=== PATIENT | male | born 1995 | race Caucasian/White ===

== ENCOUNTER 2024-06-17 11:09 | Inpatient (IN) | payer OTHER ==
--- NOTE | 2024-06-17 11:36 | ED ---
Nausea/Vomiting/Diarrhea HPI - General Chief complaint: Weakness Stated complaint: weakness,vomiting Time Seen by Provider: 06/17/24 11:18 Source: patient, RN notes reviewed Mode of arrival: ambulatory Limitations: no limitations - History of Present Illness Initial comments: This is a 28-year-old male who presents to the emergency department for nausea and vomiting. States that it started 1.5 days ago. He is unable to keep anything down. Reports some diarrhea as well. He has generalized abdominal discomfort only when vomiting. Denies any fevers/chills or sick contacts. He is concerned because he is a type I diabetic and is worried about going into DKA. States that his sugars have been all over the place, but most recently in the high 200s. MD complaint: nausea, vomiting - Related Data Home Medications Medication Instructions Recorded Confirmed Insulin Regular, Human [NovoLIN R] See Protocol SQ AC-TID 06/17/24 06/17/24 Allergies Allergy/AdvReac Type Severity Reaction Status Date / Time No Known Allergies Allergy Verified 06/17/24 11:47 Review of Systems ROS Statement: Those systems with pertinent positive or pertinent negative responses have been documented in the HPI. ROS Other: All systems not noted in ROS Statement are negative. Past Medical History Past Medical History: Diabetes Mellitus, GERD/Reflux Additional Past Medical History / Comment(s): IBS History of Any Multi-Drug Resistant Organisms: None Reported Past Surgical History: No Surgical Hx Reported Additional Past Surgical History / Comment(s): pilonidal cyst Past Psychological History: No Psychological Hx Reported Smoking Status: Current every day smoker Past Alcohol Use History: None Reported Past Drug Use History: Marijuana General Exam Limitations: no limitations General appearance: alert, in no apparent distress Head exam: Present: atraumatic, normocephalic, normal inspection Respiratory exam: Present: normal lung sounds bilaterally. Absent: respiratory distress, wheezes, rales, rhonchi, stridor Cardiovascular Exam: Present: regular rate, normal rhythm, normal heart sounds. Absent: systolic murmur, diastolic murmur, rubs, gallop, clicks Neurological exam: Present: alert, oriented X3, CN II-XII intact Psychiatric exam: Present: normal affect, normal mood Skin exam: Present: warm, dry, intact, normal color. Absent: rash Course Vital Signs 10/23/24 10/23/24 11:12 11:42 Temperature 97.3 F L Pulse Rate 119 H 103 H Respiratory 20 22 Rate Blood Pressure 114/75 123/78 O2 Sat by Pulse 100 99 Oximetry Medical Decision Making - Medical Decision Making This is a 28-year-old male who presents to the emergency department for nausea, vomiting, and weakness. Was pt. sent in by a medical professional or institution? @ -No Did you speak to anyone other than the patient for history? @ -No Did you review nursing and triage notes? @ -Yes, and I agree, it is accurate with regards to the patient's symptoms. Were old charts reviewed? @ -No Differential Diagnosis? @ -Differential Nausea and Vomiting: Gastroenteritis, cholecystitis, appendicitis, pancreatitis, migraine, benign positional vertigo, food borne illness, pyelonephritis, irritable bowel syndrome, influenza, Covid, GERD, incarcerated hernia, intestinal obstruction, this is not meant to be an all-inclusive list. EKG interpreted by me (3pts min.)? @ -EKG interpreted by me demonstrating the following: Sinus rhythm. Ventricular rate 96 bpm, FL interval 142 ms, QRS duration 102 ms, QTc 422 ms. X-rays interpreted by me (1pt min.)? @ -Not obtained CT interpreted by me (1pt min.)? @ -Not obtained U/S interpreted by me (1pt. min.)? @ -Not obtained What testing was considered but not performed? (CT, X-rays, U/S, labs)? Why? @ -None What meds were considered but not given? Why? @ -None Did you discuss the management of the patient with other professionals? @ -Yes, Noah Kuhn who accepts the patient for admission. Dr. Mcgregor accepts the patient for admission to the ICU. Did you reconcile home meds? @ -No Was smoking cessation discussed for >3mins.? @ -No Was critical care preformed (if so, how long)? @ -Yes, >35 minutes Were there social determinants of health that impacted care today? How? (Homelessness, low income, unemployed, alcoholism, drug addiction, transportation, low edu. Level, literacy, decrease access to med. care, [place] [facility], rehab)? @ -No Was there de-escalation of care discussed even if they declined? (Discuss DNR or withdrawal of care, Hospice)? @ -No What co-morbidities impacted this encounter? (DM, HTN, Smoking, COPD, CAD, Cancer, CVA, Hep., AIDS, mental health diagnosis, sleep apnea, morbid obesity)? @ -DM Was patient admitted / discharged? @ -Admitted. Lab work consistent with DKA. Patient's blood sugar is 546, anion gap 24, bicarb 10, and acetone is positive. pH is 7.24. He was given a 2 L bolus of IV fluids on arrival and started on the DKA protocol after blood work returned. Nausea controlled with Zofran. Patient admitted to medicine for further management of DKA. Patient's care to be started in the ICU. Case discussed with ED attending, Dr. Morgan. Undiagnosed new problem with uncertain prognosis? @ -None Drug Therapy requiring intensive monitoring for toxicity (Heparin, Nitro, Insulin, Cardizem)? @ -Insulin Were any procedures done? @ -None Diagnosis/symptom? @ -DKA Acute, or Chronic, or Acute on Chronic? @ -Acute Uncomplicated (without systemic symptoms) or Complicated (systemic symptoms)? @ -Complicated Side effects of treatment? @ -None Exacerbation, Progression, or Severe Exacerbation] @ -Not applicable Poses a threat to life or bodily function? @ -Yes - Lab Data Result diagrams: 06/17/24 11:30 06/17/24 15:31 Lab Results 06/17/24 06/17/24 06/17/24 Range/Units 11:30 11:30 11:30 WBC 10.1 (3.8-10.6) k/uL RBC 4.71 (4.30-5.90) m/uL Hgb 15.2 (13.0-17.5) gm/dL Hct 47.4 (39.0-53.0) % MCV 100.7 H (80.0-100.0) fL MCH 32.3 (25.0-35.0) pg MCHC 32.1 (31.0-37.0) g/dL RDW 14.1 (11.5-15.5) % Plt Count 327 (150-450) k/uL MPV 8.3 Neutrophils % 80 % Lymphocytes % 13 % Monocytes % 3 % Eosinophils % 2 % Basophils % 1 % Neutrophils # 8.1 H (1.3-7.7) k/uL Lymphocytes # 1.3 (1.0-4.8) k/uL Monocytes # 0.3 (0-1.0) k/uL Eosinophils # 0.2 (0-0.7) k/uL Basophils # 0.1 (0-0.2) k/uL Macrocytosis Slight VBG pH 7.24 L (7.31-7.41) VBG pCO2 31 L (37-51) mmHg VBG HCO3 13 L (24-28) mmol/L Sodium 134 L (137-145) mmol/L Potassium 3.9 (3.5-5.1) mmol/L Chloride 100 (98-107) mmol/L Carbon Dioxide 10 L (22-30) mmol/L Anion Gap 24 mmol/L BUN 16 (9-20) mg/dL Creatinine 0.67 (0.66-1.25) mg/dL Est GFR (CKD-EPI)AfAm >90 (>60 ml/min/1.73 sqM) Est GFR (CKD-EPI)NonAf >90 (>60 ml/min/1.73 sqM) Glucose 546 H* (74-99) mg/dL POC Glucose (mg/dL) (70-110) mg/dL POC Glu Export Specialist ID Lactic Ac Sepsis Rflx Plasma Lactic Acid Hernando (0.7-2.0) mmol/L Calcium 9.0 (8.4-10.2) mg/dL Phosphorus 3.6 (2.5-4.5) mg/dL Magnesium 2.0 (1.6-2.3) mg/dL Total Bilirubin 0.8 (0.2-1.3) mg/dL AST 48 (17-59) U/L ALT 83 H (4-49) U/L Alkaline Phosphatase 259 H (38-126) U/L Total Protein 6.9 (6.3-8.2) g/dL Albumin 4.4 (3.5-5.0) g/dL Amylase 57 (30-110) U/L Lipase 98 (23-300) U/L Acetone, Qual Positive (Negative) 06/17/24 06/17/24 06/17/24 Range/Units 11:30 12:04 12:39 WBC (3.8-10.6) k/uL RBC (4.30-5.90) m/uL Hgb (13.0-17.5) gm/dL Hct (39.0-53.0) % MCV (80.0-100.0) fL MCH (25.0-35.0) pg MCHC (31.0-37.0) g/dL RDW (11.5-15.5) % Plt Count (150-450) k/uL MPV Neutrophils % % Lymphocytes % % Monocytes % % Eosinophils % % Basophils % % Neutrophils # (1.3-7.7) k/uL Lymphocytes # (1.0-4.8) k/uL Monocytes # (0-1.0) k/uL Eosinophils # (0-0.7) k/uL Basophils # (0-0.2) k/uL Macrocytosis VBG pH (7.31-7.41) VBG pCO2 (37-51) mmHg VBG HCO3 (24-28) mmol/L Sodium (137-145) mmol/L Potassium (3.5-5.1) mmol/L Chloride (98-107) mmol/L Carbon Dioxide (22-30) mmol/L Anion Gap mmol/L BUN (9-20) mg/dL Creatinine (0.66-1.25) mg/dL Est GFR (CKD-EPI)AfAm (>60 ml/min/1.73 sqM) Est GFR (CKD-EPI)NonAf (>60 ml/min/1.73 sqM) Glucose (74-99) mg/dL POC Glucose (mg/dL) 288 H (70-110) mg/dL POC Glu Export Specialist ID November Lactic Ac Sepsis Rflx Y Plasma Lactic Acid Hernando 2.3 H* (0.7-2.0) mmol/L Calcium (8.4-10.2) mg/dL Phosphorus (2.5-4.5) mg/dL Magnesium (1.6-2.3) mg/dL Total Bilirubin (0.2-1.3) mg/dL AST (17-59) U/L ALT (4-49) U/L Alkaline Phosphatase (38-126) U/L Total Protein (6.3-8.2) g/dL Albumin (3.5-5.0) g/dL Amylase (30-110) U/L Lipase (23-300) U/L Acetone, Qual (Negative) Critical Care Time Critical Care Time: Yes Critical Care Time: >35 minutes Disposition Clinical Impression: DKA (diabetic ketoacidosis) Disposition: ADMITTED IP TO THIS HOSP
[2024-06-17] MEDS: SODIUM CHLORIDE 0.9% 2,000 ML IV STA (11:40)
[2024-06-17] MEDS: ONDANSETRON 4 MG/2 ML VIAL IVP STA (11:43)
[2024-06-17] MEDS: PANTOPRAZOLE 40 MG/10 ML VIAL IVP STA (11:45)
[2024-06-17 11:47] LABS: Basophils # (A) 0.1 k/uL (0-0.2); Basophils % (A) 1 %; Eosinophils # (A) 0.2 k/uL (0-0.7); Eosinophils % (A) 2 %; HCT 47.4 % (39.0-53.0); HGB 15.2 gm/dL (13.0-17.5); Lymphocytes # (A) 1.3 k/uL (1.0-4.8); Lymphocytes % (A) 13 %; MCH 32.3 pg (25.0-35.0); MCHC 32.1 g/dL (31.0-37.0); MCV 100.7 fL (80.0-100.0); Macrocytosis Slight; Mean Platelet Volume 8.3; Monocytes # (A) 0.3 k/uL (0-1.0); Monocytes % (A) 3 %; Neutrophils # (A) 8.1 k/uL (1.3-7.7); Neutrophils % (A) 80 %; Platelet Count 327 k/uL (150-450); RBC 4.71 m/uL (4.30-5.90); RDW 14.1 % (11.5-15.5); WBC 10.1 k/uL (3.8-10.6)
[2024-06-17 11:52] LABS: VBG PH 7.24 (7.31-7.41)
[2024-06-17 12:03] LABS: ALT 83 U/L (4-49); AST 48 U/L (17-59); African American GFR (CKD) >90 (>60 ml/min/1.73 sqM); Albumin 4.4 g/dL (3.5-5.0); Alkaline Phosphatase 259 U/L (38-126); Amylase 57 U/L (30-110); Anion Gap 24 mmol/L; Blood Urea Nitrogen 16 mg/dL (9-20); Carbon Dioxide 10 mmol/L (22-30); Chloride 100 mmol/L (98-107); Lipase 98 U/L (23-300); Non-African American GFR(CKD) >90 (>60 ml/min/1.73 sqM); Phosphorus 3.6 mg/dL (2.5-4.5); Potassium 3.9 mmol/L (3.5-5.1); Sodium 134 mmol/L (137-145); Total Bilirubin 0.8 mg/dL (0.2-1.3); Total Protein 6.9 g/dL (6.3-8.2)
[2024-06-17 12:05] LABS: Glucose 546 mg/dL (74-99)
[2024-06-17] MEDS: INSULIN REGULAR BOLUS (FROM DRIP BAG) IV ONE (12:35)
[2024-06-17] MEDS: INSULIN REGULAR 100 UNIT in SODIUM CHLORIDE 0.9% 100 ML IV SCH (12:36)
[2024-06-17] MEDS: SODIUM CHLORIDE 0.9% 1,000 ML IV SCH (12:37)
[2024-06-17 12:40] LABS: Glucose,Whole Blood 288 mg/dL (70-110)
[2024-06-17 13:02] LABS: Glucose,Whole Blood 224 mg/dL (70-110)
[2024-06-17] MEDS ORDERED: ACETAMINOPHEN TAB 325 MG TAB PO PRN (13:13)
[2024-06-17] MEDS ORDERED: IBUPROFEN 400 MG TAB PO PRN (13:13)
[2024-06-17] MEDS ORDERED: NALOXONE 0.4 MG/ML 1 ML VIAL IV PRN (13:13)
[2024-06-17] MEDS ORDERED: MORPHINE SULFATE 4 MG/ML SYRINGE IV PRN (13:13)
[2024-06-17] MEDS ORDERED: HYDROcodone/APAP 5-325MG 1 EACH TAB PO PRN (13:13)
[2024-06-17] MEDS ORDERED: ONDANSETRON 4 MG/2 ML VIAL IVP PRN (13:15)
[2024-06-17] MEDS: D5-0.45% NACL WITH KCL 20MEQ/L 1,000 ML IV ONE (13:15)
[2024-06-17 14:05] LABS: Glucose,Whole Blood 154 mg/dL (70-110)
--- NOTE | 2024-06-17 14:41 | P.HPIM ---
History of Present Illness H&P Date: 06/17/24 Patient is a 28-year-old male with type I insulin-dependent diabetes presenting with nausea and vomiting. He claims that he was in his usual state of health, but developed nausea and vomiting yesterday. He claims that no significant diarrhea or constipation, no new rashes, no fevers or chills, no abdominal pain. He denies any chest pain, shortness of breath, cough, travel history. He does have some sick contacts, niece/nephew of his cousin. He has been using subcu insulin, counting calories, last A1c was slightly less than 10. He has not seen chief embalmer in 4 months. In the ED, temperature was 97.3, pulse 119, blood pressure 114/75, respiratory rate 20, 100% RA. WBC 10.1, hemoglobin 15.2, pH 7.24, pCO2 31, sodium 134, bicarb 10, anion gap 24, creatinine 0.67, glucose 546, lactate 2.3, total bili 0.8, AST 48, ALT 83, ALP 259, lipase 98, acetone positive. EKG independently interpreted, shows sinus rhythm with poor R wave progression, signs of early repolarization. Patient being admitted for DKA. ICU consulted. Started on insulin drip, bolused with 2 L of normal saline, started on IV fluids. Pertinent positives and negatives as discussed in HPI, a complete review of systems was performed and all other systems are negative. Patient seen and examined at bedside. Vital signs reviewed General: nontoxic, no distress, appears at stated age Derm: warm, dry Head: atraumatic, normocephalic, symmetric Eyes: EOMI, no lid lag, anicteric sclera, pupils equal round reactive to light ENT: Nose and ears atraumatic Neck: No thyromegaly, supple Mouth: no lip lesion, mucus membranes moist Cardiovascular: S1S2 reg, no murmur, no edema Lungs: clear to auscultation bilateral, no rhonchi, no rales, no wheeze, no accessory muscle use Abdominal: soft, nontender to palpation, no guarding, no appreciable organomegaly Ext: no gross muscle atrophy, muscle strength muscle strength 5 out of 5 in all 4 extremities, no contractures Neuro: CN II-XII grossly intact Psych: Alert, oriented, appropriate affect Assessment/Plan: Diabetic ketoacidosis High anion gap metabolic acidosis secondary to above Lactic acidosis Dehydration Transaminitis -Continue insulin drip, monitor her blood sugars every hours -Transition to subcu insulin once patient is able to tolerate oral intake, gap closes, and sugars in the 200s. -Continue IV fluids, on normal saline at 200 cc an hour, may transition to D5 half-normal saline once blood sugars come down -Pain control with oral Tylenol as needed, oral Geddes as needed, oral Motrin as needed, IV morphine as needed, monitor for sedation -Zofran 4 mg IV every 8 hours as needed for nausea and vomiting -ICU consulted, pending recommendations -BMP every 4 hours -A1c ordered The patient is admitted with an anticipated greater than 2 midnight stay as inpatient status for evaluation of DKA. Surrogate decision-maker: Father CODE STATUS: Full code DVT prophylaxis: Lovenox Anticipated discharge date: Pending clinical course Anticipated discharge place: Pending clinical course A total of 65 minutes was spent on the care of this complex patient more than 50% of the time was spent in counseling and care coordination. Past Medical History Past Medical History: Diabetes Mellitus, GERD/Reflux Additional Past Medical History / Comment(s): IBS History of Any Multi-Drug Resistant Organisms: None Reported Past Surgical History: No Surgical Hx Reported Additional Past Surgical History / Comment(s): pilonidal cyst Past Psychological History: No Psychological Hx Reported Smoking Status: Current every day smoker Past Alcohol Use History: None Reported Past Drug Use History: Marijuana Medications and Allergies Home Medications Medication Instructions Recorded Confirmed Type Insulin Regular, Human [NovoLIN R] See Protocol SQ AC-TID 06/17/24 06/17/24 History Allergies Allergy/AdvReac Type Severity Reaction Status Date / Time No Known Allergies Allergy Verified 06/17/24 11:47 Physical Exam Vitals: Vital Signs Temp Pulse Resp BP Pulse Ox 06/17/24 11:42 103 H 22 123/78 99 06/17/24 11:12 97.3 F L 119 H 20 114/75 100 Intake and Output 06/16/24 06/17/24 06/17/24 22:59 06:59 14:59 Other: Weight 61.235 kg Results CBC & Chem 7: 06/17/24 11:30 06/17/24 11:30 Labs: Abnormal Lab Results - Last 24 Hours (Table) 06/17/24 06/17/24 06/17/24 Range/Units 11:30 11:30 11:30 MCV 100.7 H (80.0-100.0) fL Neutrophils # 8.1 H (1.3-7.7) k/uL VBG pH 7.24 L (7.31-7.41) VBG pCO2 31 L (37-51) mmHg VBG HCO3 13 L (24-28) mmol/L Sodium 134 L (137-145) mmol/L Carbon Dioxide 10 L (22-30) mmol/L Glucose 546 H* (74-99) mg/dL POC Glucose (mg/dL) (70-110) mg/dL Plasma Lactic Acid Hernando (0.7-2.0) mmol/L ALT 83 H (4-49) U/L Alkaline Phosphatase 259 H (38-126) U/L 06/17/24 06/17/24 06/17/24 Range/Units 11:30 12:39 13:00 MCV (80.0-100.0) fL Neutrophils # (1.3-7.7) k/uL VBG pH (7.31-7.41) VBG pCO2 (37-51) mmHg VBG HCO3 (24-28) mmol/L Sodium (137-145) mmol/L Carbon Dioxide (22-30) mmol/L Glucose (74-99) mg/dL POC Glucose (mg/dL) 288 H 224 H (70-110) mg/dL Plasma Lactic Acid Hernando 2.3 H* (0.7-2.0) mmol/L ALT (4-49) U/L Alkaline Phosphatase (38-126) U/L 06/17/24 Range/Units 14:03 MCV (80.0-100.0) fL Neutrophils # (1.3-7.7) k/uL VBG pH (7.31-7.41) VBG pCO2 (37-51) mmHg VBG HCO3 (24-28) mmol/L Sodium (137-145) mmol/L Carbon Dioxide (22-30) mmol/L Glucose (74-99) mg/dL POC Glucose (mg/dL) 154 H (70-110) mg/dL Plasma Lactic Acid Hernando (0.7-2.0) mmol/L ALT (4-49) U/L Alkaline Phosphatase (38-126) U/L
[2024-06-17 15:06] LABS: Glucose,Whole Blood 104 mg/dL (70-110)
--- NOTE | 2024-06-17 15:43 | P.CNPUL ---
History of Present Illness Consult date: 06/17/24 Requesting physician: Aparna Seth Reason for consult: other ( Critical care management) Chief complaint: Nausea, vomiting, poor appetite History of present illness: This is a pleasant 28-year-old male patient with a known history of insulin- dependent type 1 diabetes for approximately 10 years now. He is maintained on long-acting and NovoLog insulin in the outpatient setting. He follows with an retail sales associate seasonal out of [facility]. He presented to the emergency department this morning with a 1 to 2-day history of nausea, vomiting, occasional diarrhea. Unable to keep any food down. Blood sugar levels were over 200. Initial glucose here was 546. White count 10.1. Hemoglobin 15.2. Sodium 134. Potassium 3.9. Bicarb 10. Anion gap 24. BUN 16. Creatinine 0.67. Acetone positive. Amylase 57. Lipase 98. He is seen today in consultation in the emergency department. He is currently laying on a stretcher. Awake and alert in no acute distress. He is maintaining O2 saturations in the 90s on room air. He is afebrile. Somewhat tachycardic. Blood pressure stable. He is on an insulin drip at 3 units an hour. D5 4 5 with 20 of KCl at 150 mL/h. Follow-up labs are pending. Review of Systems REVIEW OF SYSTEMS: CONSTITUTIONAL: Denies any recent significant weight loss or weight gain. EYES: Denies change in vision. EARS, NOSE, MOUTH, THROAT: Denies headaches, denies sore throat. CARDIOVASCULAR: Denies chest pain, palpitations or syncopal episodes. RESPIRATORY: Denies shortness of breath, cough, congestion or hemoptysis. GASTROINTESTINAL: Positive for nausea, vomiting, diarrhea. Poor appetite. GENITOURINARY: Denies hematuria, denies infections. MUSKULOSKELETAL: Denies pain, denies swelling. INTEGUMENTARY: Denies rash, denies eczema. NEUROLOGICAL: Denies recent memory loss, no recent seizure activity. PSYCHIATRIC: Denies anxiety, denies depression. HEMATOLOGIC/LYMPHATIC: Denies anemia, denies enlarged lymph nodes. Past Medical History Past Medical History: Diabetes Mellitus, GERD/Reflux Additional Past Medical History / Comment(s): IBS History of Any Multi-Drug Resistant Organisms: None Reported Past Surgical History: No Surgical Hx Reported Additional Past Surgical History / Comment(s): pilonidal cyst Past Psychological History: No Psychological Hx Reported Smoking Status: Current every day smoker Past Alcohol Use History: None Reported Past Drug Use History: Marijuana Medications and Allergies Home Medications Medication Instructions Recorded Confirmed Type Insulin Regular, Human [NovoLIN R] See Protocol SQ AC-TID 06/17/24 06/17/24 History Allergies Allergy/AdvReac Type Severity Reaction Status Date / Time No Known Allergies Allergy Verified 06/17/24 11:47 Physical Exam Vitals: Vital Signs Temp Pulse Resp BP Pulse Ox 06/17/24 11:42 103 H 22 123/78 99 06/17/24 11:12 97.3 F L 119 H 20 114/75 100 Intake and Output 06/17/24 06/17/24 06/17/24 06:59 14:59 22:59 Intake Total 15.153 Balance 15.153 Intake: Intake, IV Titration 15.153 Amount Insulin Regular 100 unit 15.153 In Sodium Chloride 0.9% 100 ml @ 0.1 UNITS/KG/HR 6.185 mls/hr IV .[id number] [facility] Rx#:[id number] Other: Weight 61.235 kg GENERAL EXAM: Alert, pleasant, thin 28-year-old male, on room air, fairly comfortable in no apparent distress. HEAD: Normocephalic. EYES: Normal reaction of pupils, equal size. NOSE: Clear with pink turbinates. THROAT: No erythema or exudates. NECK: No masses, no JVD. CHEST: No chest wall deformity. LUNGS: Equal air entry with no crackles, wheeze, rhonchi or dullness. CVS: S1 and S2 normal with no audible murmur, regular rhythm. ABDOMEN: No hepatosplenomegaly, normal bowel sounds, no guarding or rigidity. SPINE: No scoliosis or deformity SKIN: No rashes CENTRAL NERVOUS SYSTEM: No focal deficits, tone is normal in all 4 extremities. EXTREMITIES: There is no peripheral edema. No clubbing, no cyanosis. Periph eral pulses are intact. Results - Laboratory Findings CBC and BMP: 06/17/24 11:30 06/17/24 11:30 Abnormal lab findings: Abnormal Labs 06/17/24 06/17/24 06/17/24 11:30 11:30 11:30 MCV 100.7 H Neutrophils # 8.1 H VBG pH 7.24 L VBG pCO2 31 L VBG HCO3 13 L Sodium 134 L Carbon Dioxide 10 L Glucose 546 H* POC Glucose (mg/dL) Plasma Lactic Acid Hernando ALT 83 H Alkaline Phosphatase 259 H 06/17/24 06/17/24 06/17/24 11:30 12:39 13:00 MCV Neutrophils # VBG pH VBG pCO2 VBG HCO3 Sodium Carbon Dioxide Glucose POC Glucose (mg/dL) 288 H 224 H Plasma Lactic Acid Hernando 2.3 H* ALT Alkaline Phosphatase 06/17/24 14:03 MCV Neutrophils # VBG pH VBG pCO2 VBG HCO3 Sodium Carbon Dioxide Glucose POC Glucose (mg/dL) 154 H Plasma Lactic Acid Hernando ALT Alkaline Phosphatase Assessment and Plan Assessment: Acute diabetic ketoacidosis secondary to nausea, vomiting, diarrhea, poor appetite Anion gap metabolic acidosis secondary to above History of type 1 diabetes mellitus for approximately 10 years now Plan: The patient was seen and evaluated Labs and medications reviewed Continue the DKA protocol Admit to the intensive care unit Follow-up labs are pending We will continue to follow and make further recommendations based on his clinical status I have personally seen and examined the patient, performed the documentation and the assessment and plan as written. Number of minutes spent on the visit: 20 Dictation was produced using [employer] dictation software. Please excuse any grammatical, word or spelling errors.
[2024-06-17 15:59] LABS: Glucose,Whole Blood 104 mg/dL (70-110)
[2024-06-17 16:40] LABS: African American GFR (CKD) >90 (>60 ml/min/1.73 sqM); Anion Gap 6 mmol/L; Blood Urea Nitrogen 14 mg/dL (9-20); Carbon Dioxide 23 mmol/L (22-30); Chloride 109 mmol/L (98-107); Glucose 96 mg/dL (74-99); Non-African American GFR(CKD) >90 (>60 ml/min/1.73 sqM); Phosphorus 2.7 mg/dL (2.5-4.5); Sodium 138 mmol/L (137-145)
[2024-06-17 17:19] LABS: Glucose,Whole Blood 98 mg/dL (70-110)
[2024-06-17 18:08] LABS: Glucose,Whole Blood 95 mg/dL (70-110)
[2024-06-17 18:10] LABS: Appearance,Urine Clear (Clear); Bilirubin,Urine Negative (Negative); Blood,Urine Negative (Negative); Color,Urine Colorless; Glucose,Urine (UA) 4+ (Negative); Leukocyte Esterase,Urine Negative (Negative); Nitrite,Urine Negative (Negative); PH, Urine 5.5 (5.0-8.0); Protein,Urine Negative (Negative); Specific Gravity,Urine 1.024 (1.001-1.035); Urobilinogen,Urine <2.0 mg/dL (<2.0)
[2024-06-17 18:18] LABS: Ketones,Urine 3+ (Negative)
[2024-06-17 18:53] LABS: Glucose,Whole Blood 102 mg/dL (70-110)
[2024-06-17 19:33] VITALS: RESP 18
[2024-06-17 19:58] LABS: Glucose,Whole Blood 118 mg/dL (70-110)
[2024-06-17] MEDS ORDERED: D5-0.45% NACL WITH KCL 20MEQ/L 1,000 ML IV SCH (20:30)
[2024-06-17 20:32] LABS: Glucose,Whole Blood 251 mg/dL (70-110)
[2024-06-17] MEDS: INSULIN ASPART (NovoLOG) 100 UNIT/ML VIAL SQ SCH (20:41)
[2024-06-17 20:55] LABS: African American GFR (CKD) >90 (>60 ml/min/1.73 sqM); Anion Gap 3 mmol/L; Blood Urea Nitrogen 13 mg/dL (9-20); Calcium 7.9 mg/dL (8.4-10.2); Carbon Dioxide 24 mmol/L (22-30); Chloride 107 mmol/L (98-107); Glucose 146 mg/dL (74-99); Non-African American GFR(CKD) >90 (>60 ml/min/1.73 sqM); Phosphorus 2.9 mg/dL (2.5-4.5); Sodium 134 mmol/L (137-145)
[2024-06-17] MEDS: INSULIN DETEMIR (LEVEMIR) 100 UNIT/ML SYR SQ SCH (21:23)
[2024-06-18 02:07] LABS: Glucose,Whole Blood 49 mg/dL (70-110)
[2024-06-18 02:20] LABS: Glucose,Whole Blood 58 mg/dL (70-110)
[2024-06-18 03:43] LABS: Glucose,Whole Blood 181 mg/dL (70-110)
[2024-06-18 06:13] LABS: Glucose,Whole Blood 155 mg/dL (70-110)
[2024-06-18 07:23] LABS: Glucose,Whole Blood 132 mg/dL (70-110)
[2024-06-18] MEDS: ENOXAPARIN 40 MG/0.4 ML SYRINGE SQ SCH (08:11)
[2024-06-18] MEDS: PANTOPRAZOLE 40 MG/10 ML VIAL IV SCH (08:11)
[2024-06-18 09:07] LABS: Basophils % (A) 0 %; Eosinophils # (A) 0.2 k/uL (0-0.7); Eosinophils % (A) 3 %; HCT 38.1 % (39.0-53.0); HGB 12.8 gm/dL (13.0-17.5); Lymphocytes # (A) 1.4 k/uL (1.0-4.8); Lymphocytes % (A) 19 %; MCHC 33.6 g/dL (31.0-37.0); MCV 98.3 fL (80.0-100.0); Mean Platelet Volume 8.1; Monocytes # (A) 0.4 k/uL (0-1.0); Monocytes % (A) 5 %; Neutrophils # (A) 5.2 k/uL (1.3-7.7); Neutrophils % (A) 72 %; Platelet Count 263 k/uL (150-450); RBC 3.88 m/uL (4.30-5.90); RDW 14.2 % (11.5-15.5); WBC 7.3 k/uL (3.8-10.6)
[2024-06-18 09:17] LABS: African American GFR (CKD) >90 (>60 ml/min/1.73 sqM); Anion Gap 8 mmol/L; Blood Urea Nitrogen 12 mg/dL (9-20); Calcium 8.2 mg/dL (8.4-10.2); Carbon Dioxide 22 mmol/L (22-30); Chloride 104 mmol/L (98-107); Glucose 228 mg/dL (74-99); Magnesium 1.9 mg/dL (1.6-2.3); Non-African American GFR(CKD) >90 (>60 ml/min/1.73 sqM); Potassium 4.1 mmol/L (3.5-5.1); Sodium 134 mmol/L (137-145)
--- NOTE | 2024-06-18 09:31 | P.DS ---
Providers Date of admission: 06/17/24 12:48 Expected date of discharge: 06/18/24 Attending physician: Aparna Seth MD Consults: 06/17/24 13:13 Consult Physician Stat Consulting Provider: Juan Mcgregor Consult Reason/Comments: ICU management Do you want consulting provider notified?: Yes Primary care physician: Ajay Guallpa MD Hospital Course: Discharge Diagnosis: Diabetic ketoacidosis High anion gap metabolic acidosis secondary to above Lactic acidosis Dehydration Transaminitis Hospital Course: 28-year-old male with type I insulin-dependent diabetes presenting with nausea and vomiting. In the ED, temperature was 97.3, pulse 119, blood pressure 114/75, respiratory rate 20, 100% RA. WBC 10.1, hemoglobin 15.2, pH 7.24, pCO2 31, sodium 134, bicarb 10, anion gap 24, creatinine 0.67, glucose 546, lactate 2.3, total bili 0.8, AST 48, ALT 83, ALP 259, lipase 98, acetone positive. EKG independently interpreted, shows sinus rhythm with poor R wave progression, signs of early repolarization. Patient being admitted for DKA. ICU also consulted. Started on insulin drip, bolused with 2 L of normal saline, started on IV fluids. Anion gap closed, symptoms improved. Switch to subcu insulin. A1c was 11.5. Patient being discharged home with close follow-up with PCP. Needs better glucose control. He will likely benefit from continuous glucose mo nitoring as well as insulin pump. Patient seen and examined at bedside. Vital signs reviewed and stable. General: Nontoxic, no distress, appears at stated age Derm: Warm, dry Head: Atraumatic, normocephalic, symmetric Eyes: EOMI, no lid lag, anicteric sclera Mouth: No lip lesion, mucus membranes moist Cardiovascular: S1S2 reg, no murmur Lungs: CTA bilateral, no rhonchi, no rales, no accessory muscle use Abdominal: Soft, nontender to palpation, no guarding, no appreciable organomegaly Ext: No gross muscle atrophy, no edema, no contractures Neuro: CN II-XI grossly intact, no focal neuro deficits Psych: Alert, oriented, appropriate affect A total of 33 minutes of time were spent preparing this complex discharge summary. Patient was discharged on 06/18/2024 at 927. 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 Discharge Disposition: HOME SELF-CARE
[2024-06-18 10:15] VITALS: BP 110/64; PULSE 68; TEMP 97.5
--- NOTE | 2024-06-18 11:17 | P.PN ---
Subjective Progress Note Date: 06/18/24 Principal diagnosis: Acute diabetic ketoacidosis This is a pleasant 28-year-old male patient with a known history of insulin- dependent type 1 diabetes for approximately 10 years now. He is maintained on long-acting and NovoLog insulin in the outpatient setting. He follows with an measurer out of [place]. He presented to the emergency department this morning with a 1 to 2-day history of nausea, vomiting, occasional diarrhea. Unable to keep any food down. Blood sugar levels were over 200. Initial glucose here was 546. White count 10.1. Hemoglobin 15.2. Sodium 134. Potassium 3.9. Bicarb 10. Anion gap 24. BUN 16. Creatinine 0.67. Acetone positive. Amylase 57. Lipase 98. He is seen today in consultation in the emergency department. He is currently laying on a stretcher. Awake and alert in no acute distress. He is maintaining O2 saturations in the 90s on room air. He is afebrile. Somewhat tachycardic. Blood pressure stable. He is on an insulin drip at 3 units an hour. D5 4 5 with 20 of KCl at 150 mL/h. Follow-up labs are pending. Patient was seen and examined today on 06/18/2024, patient is doing well, his anion gap has completely closed, his blood sugar is under control, obviously the patient does not need to be admitted to the ICU, I would recommend either discharging the patient home or admission to the floor for the next 24 hours, decision will be made by his admitting physician. Nonetheless patient definitely does not need ICU care at this point. Objective - Vital Signs Vital signs: Vital Signs Temp 97.5 F L 06/18/24 10:14 Pulse 68 06/18/24 10:14 Resp 18 06/18/24 10:14 BP 110/64 06/18/24 10:14 Pulse Ox 99 06/18/24 10:14 FiO2 Intake & Output 06/17/24 06/18/24 06/18/24 18:59 06:59 18:59 Intake Total 20.433 Balance 20.433 Weight 61.235 kg Intake: Intake, IV Titration 20.433 Amount Insulin Regular 100 unit 20.433 In Sodium Chloride 0.9% 100 ml @ 0.1 UNITS/KG/HR 6.185 mls/hr IV .[id number] [facility] Rx#:[id number] - Exam GENERAL EXAM: Alert, pleasant, thin 28-year-old male, on room air, not in any distress HEAD: Normocephalic. EYES: Normal reaction of pupils, equal size. NOSE: Clear with pink turbinates. THROAT: No erythema or exudates. NECK: No masses, no JVD. CHEST: No chest wall deformity. LUNGS: Equal air entry with no crackles, wheeze, rhonchi or dullness. CVS: S1 and S2 normal with no audible murmur, regular rhythm. ABDOMEN: No hepatosplenomegaly, normal bowel sounds, no guarding or rigidity. SKIN: No rashes CENTRAL NERVOUS SYSTEM: No focal deficits, tone is normal in all 4 extremities. EXTREMITIES: There is no peripheral edema. No clubbing, no cyanosis. Peripheral pulses are intact. - Labs CBC & Chem 7: 06/18/24 08:56 06/18/24 08:56 Labs: Abnormal Lab Results - Last 24 Hours (Table) 06/17/24 06/17/24 06/17/24 Range/Units 11:30 11:30 11:30 RBC (4.30-5.90) m/uL Hgb (13.0-17.5) gm/dL Hct (39.0-53.0) % MCV 100.7 H (80.0-100.0) fL Neutrophils # 8.1 H (1.3-7.7) k/uL VBG pH (7.31-7.41) VBG pCO2 (37-51) mmHg VBG HCO3 (24-28) mmol/L Sodium 134 L (137-145) mmol/L Chloride (98-107) mmol/L Carbon Dioxide 10 L (22-30) mmol/L Creatinine (0.66-1.25) mg/dL Glucose 546 H* (74-99) mg/dL POC Glucose (mg/dL) (70-110) mg/dL Hemoglobin A1c (<=6.0) % Plasma Lactic Acid Hernando (0.7-2.0) mmol/L Calcium (8.4-10.2) mg/dL ALT 83 H (4-49) U/L Alkaline Phosphatase 259 H (38-126) U/L Urine Glucose (UA) 4+ H (Negative) Urine Ketones 3+ H (Negative) 06/17/24 06/17/24 06/17/24 Range/Units 11:30 11:30 12:39 RBC (4.30-5.90) m/uL Hgb (13.0-17.5) gm/dL Hct (39.0-53.0) % MCV (80.0-100.0) fL Neutrophils # (1.3-7.7) k/uL VBG pH 7.24 L (7.31-7.41) VBG pCO2 31 L (37-51) mmHg VBG HCO3 13 L (24-28) mmol/L Sodium (137-145) mmol/L Chloride (98-107) mmol/L Carbon Dioxide (22-30) mmol/L Creatinine (0.66-1.25) mg/dL Glucose (74-99) mg/dL POC Glucose (mg/dL) 288 H (70-110) mg/dL Hemoglobin A1c (<=6.0) % Plasma Lactic Acid Hernando 2.3 H* (0.7-2.0) mmol/L Calcium (8.4-10.2) mg/dL ALT (4-49) U/L Alkaline Phosphatase (38-126) U/L Urine Glucose (UA) (Negative) Urine Ketones (Negative) 06/17/24 06/17/24 06/17/24 Range/Units 13:00 14:03 15:31 RBC (4.30-5.90) m/uL Hgb (13.0-17.5) gm/dL Hct (39.0-53.0) % MCV (80.0-100.0) fL Neutrophils # (1.3-7.7) k/uL VBG pH (7.31-7.41) VBG pCO2 (37-51) mmHg VBG HCO3 (24-28) mmol/L Sodium (137-145) mmol/L Chloride 109 H (98-107) mmol/L Carbon Dioxide (22-30) mmol/L Creatinine 0.44 L (0.66-1.25) mg/dL Glucose (74-99) mg/dL POC Glucose (mg/dL) 224 H 154 H (70-110) mg/dL Hemoglobin A1c (<=6.0) % Plasma Lactic Acid Hernando (0.7-2.0) mmol/L Calcium (8.4-10.2) mg/dL ALT (4-49) U/L Alkaline Phosphatase (38-126) U/L Urine Glucose (UA) (Negative) Urine Ketones (Negative) 06/17/24 06/17/24 06/17/24 Range/Units 15:31 19:56 20:10 RBC (4.30-5.90) m/uL Hgb (13.0-17.5) gm/dL Hct (39.0-53.0) % MCV (80.0-100.0) fL Neutrophils # (1.3-7.7) k/uL VBG pH (7.31-7.41) VBG pCO2 (37-51) mmHg VBG HCO3 (24-28) mmol/L Sodium 134 L (137-145) mmol/L Chloride (98-107) mmol/L Carbon Dioxide (22-30) mmol/L Creatinine 0.52 L (0.66-1.25) mg/dL Glucose 146 H (74-99) mg/dL POC Glucose (mg/dL) 118 H (70-110) mg/dL Hemoglobin A1c 11.5 H (<=6.0) % Plasma Lactic Acid Hernando (0.7-2.0) mmol/L Calcium 7.9 L (8.4-10.2) mg/dL ALT (4-49) U/L Alkaline Phosphatase (38-126) U/L Urine Glucose (UA) (Negative) Urine Ketones (Negative) 06/17/24 06/18/24 06/18/24 Range/Units 20:31 02:04 02:19 RBC (4.30-5.90) m/uL Hgb (13.0-17.5) gm/dL Hct (39.0-53.0) % MCV (80.0-100.0) fL Neutrophils # (1.3-7.7) k/uL VBG pH (7.31-7.41) VBG pCO2 (37-51) mmHg VBG HCO3 (24-28) mmol/L Sodium (137-145) mmol/L Chloride (98-107) mmol/L Carbon Dioxide (22-30) mmol/L Creatinine (0.66-1.25) mg/dL Glucose (74-99) mg/dL POC Glucose (mg/dL) 251 H 49 L* 58 L (70-110) mg/dL Hemoglobin A1c (<=6.0) % Plasma Lactic Acid Hernando (0.7-2.0) mmol/L Calcium (8.4-10.2) mg/dL ALT (4-49) U/L Alkaline Phosphatase (38-126) U/L Urine Glucose (UA) (Negative) Urine Ketones (Negative) 06/18/24 06/18/24 06/18/24 Range/Units 03:41 06:10 07:22 RBC (4.30-5.90) m/uL Hgb (13.0-17.5) gm/dL Hct (39.0-53.0) % MCV (80.0-100.0) fL Neutrophils # (1.3-7.7) k/uL VBG pH (7.31-7.41) VBG pCO2 (37-51) mmHg VBG HCO3 (24-28) mmol/L Sodium (137-145) mmol/L Chloride (98-107) mmol/L Carbon Dioxide (22-30) mmol/L Creatinine (0.66-1.25) mg/dL Glucose (74-99) mg/dL POC Glucose (mg/dL) 181 H 155 H 132 H (70-110) mg/dL Hemoglobin A1c (<=6.0) % Plasma Lactic Acid Hernando (0.7-2.0) mmol/L Calcium (8.4-10.2) mg/dL ALT (4-49) U/L Alkaline Phosphatase (38-126) U/L Urine Glucose (UA) (Negative) Urine Ketones (Negative) 06/18/24 06/18/24 Range/Units 08:56 08:56 RBC 3.88 L (4.30-5.90) m/uL Hgb 12.8 L (13.0-17.5) gm/dL Hct 38.1 L (39.0-53.0) % MCV (80.0-100.0) fL Neutrophils # (1.3-7.7) k/uL VBG pH (7.31-7.41) VBG pCO2 (37-51) mmHg VBG HCO3 (24-28) mmol/L Sodium 134 L (137-145) mmol/L Chloride (98-107) mmol/L Carbon Dioxide (22-30) mmol/L Creatinine 0.49 L (0.66-1.25) mg/dL Glucose 228 H (74-99) mg/dL POC Glucose (mg/dL) (70-110) mg/dL Hemoglobin A1c (<=6.0) % Plasma Lactic Acid Hernando (0.7-2.0) mmol/L Calcium 8.2 L (8.4-10.2) mg/dL ALT (4-49) U/L Alkaline Phosphatase (38-126) U/L Urine Glucose (UA) (Negative) Urine Ketones (Negative) Assessment and Plan Assessment: Impression Acute diabetic ketoacidosis, resolved Anion gap metabolic acidosis secondary to above History of type 1 diabetes mellitus for approximately 10 years now Recommendation: Dramatic improvement noted in the last 24 hours Patient does not need to go to ICU anymore, Consider discharge planning or admission to regular medical floor. Cleared from our perspective for discharge Time with Patient: Less than 30
== END 2024-06-18 10:44 | disposition home or self-care (01) | DRG 639 ==
LOC: EC 11:09 → 3SCARD 12:48
PROVIDERS: ADMIT Internal Medicine; ATTEND Internal Medicine
DX: E10.10 Type 1 diabetes mellitus with ketoacidosis without coma (principal); E86.0 Dehydration; F17.200 Nicotine dependence, unspecified, uncomplicated; K58.0 Irritable bowel syndrome with diarrhea; Z79.4 Long term (current) use of insulin; R74.01 Elevation of levels of liver transaminase levels; K21.9 Gastro-esophageal reflux disease without esophagitis; Z96.41 Presence of insulin pump (external) (internal); Z79.85 Long-term (current) use of injectable non-insulin antidiabetic drugs
CPT/HCPCS: 36415; 80048; 80051; 80053; 81003; 82009; 82150; 82565; 82803; 82947; 83036; 83605; 83690; 83735; 84100; 84520; 85025; 93005; 96361; 96374; 96375; 99291

== ENCOUNTER 2024-09-23 12:54 | Inpatient (IN) | payer OTHER ==
[2024-09-23 13:01] LABS: Glucose,Whole Blood >600 mg/dL (70-110)
[2024-09-23] MEDS: SODIUM CHLORIDE 0.9% 2,000 ML IV STA (13:17)
[2024-09-23] MEDS: ONDANSETRON 4 MG/2 ML VIAL IVP STA (13:20)
[2024-09-23] MEDS: PANTOPRAZOLE 40 MG/10 ML VIAL IVP STA (13:23)
[2024-09-23] MEDS: SODIUM BICARB 8.4% 50 ML SYR (1 MEQ/ML) IV ONE (13:31)
[2024-09-23] MEDS: INSULIN REGULAR 100 UNIT/ML VIAL (IV) IV ONE (13:40)
[2024-09-23 13:42] LABS: VBG PH 6.95 (7.31-7.41)
[2024-09-23] MEDS: SODIUM BICARB 8.4% 50 ML SYR (1 MEQ/ML) IV STA (13:43)
[2024-09-23] MEDS: SODIUM ZIRCONIUM CYCLOSILICATE 10 GM PACKET PO ONE (13:47)
[2024-09-23] MEDS: SODIUM CHLORIDE 0.9% 500 ML 500 ML IV STA (13:56)
[2024-09-23] MEDS: CALCIUM GLUCONATE IN NACL 1 GM in SALINE 1 100ML.BAG IVPB ONE (13:56)
[2024-09-23 13:58] LABS: AST 46 U/L (17-59); African American GFR (CKD) 88 (>60 ml/min/1.73 sqM); Albumin 5.3 g/dL (3.5-5.0); Alkaline Phosphatase 249 U/L (38-126); Amylase 60 U/L (30-110); Blood Urea Nitrogen 19 mg/dL (9-20); Calcium 9.4 mg/dL (8.4-10.2); Chloride 93 mmol/L (98-107); Lipase 49 U/L (23-300); Non-African American GFR(CKD) 76 (>60 ml/min/1.73 sqM); Potassium 5.1 mmol/L (3.5-5.1); Sodium 137 mmol/L (137-145); Total Bilirubin 0.4 mg/dL (0.2-1.3); Total Protein 7.9 g/dL (6.3-8.2)
[2024-09-23] MEDS: SODIUM CHLORIDE 0.9% 1,000 ML IV SCH (14:00)
[2024-09-23 14:05] LABS: HCT 52.2 % (39.0-53.0); HGB 16.5 gm/dL (13.0-17.5); Hypochromasia Moderate; MCH 33.2 pg (25.0-35.0); MCHC 31.6 g/dL (31.0-37.0); MCV 105.1 fL (80.0-100.0); Macrocytosis Slight; Platelet Count 428 k/uL (150-450); RBC 4.97 m/uL (4.30-5.90); RDW 13.2 % (11.5-15.5); WBC 40.9 k/uL (3.8-10.6)
[2024-09-23 14:12] LABS: ALT 67 U/L (4-49); Carbon Dioxide <5 mmol/L (22-30); Glucose 612 mg/dL (74-99)
[2024-09-23 14:16] LABS: Influenza A Not Detected (Not Detectd); Influenza B Not Detected (Not Detectd); RSV Not Detected (Not Detectd)
[2024-09-23 14:17] LABS: Partial Thromboplastin Time 22.1 sec (22.0-30.0); Prothrombin Time 10.9 sec (10.0-12.5)
[2024-09-23] MEDS ORDERED: DEXTROSE 50% SYRINGE 50 ML IVP PRN ×2 (14:22)
[2024-09-23] MEDS ORDERED: Potassium Replacement Protocol 1 EACH MISC MISCELLANE PRN (14:22)
[2024-09-23] MEDS ORDERED: Magnesium Replacement Protocol 1 EACH MISC MISCELLANE PRN (14:22)
[2024-09-23] MEDS ORDERED: NALOXONE 0.4 MG/ML 1 ML VIAL IV PRN (14:34)
[2024-09-23] MEDS: MAG HYDROX/AL HYDROX/SIMETH 30 ML CUP PO STA (15:07)
[2024-09-23] MEDS: LIDOCAINE VISCOUS 2% 15 ML CUP PO ONE (15:07)
--- NOTE | 2024-09-23 15:10 | XR ---
EXAMINATION TYPE: XR chest 1V portable DATE OF EXAM: 09/23/2024 COMPARISON: NONE CLINICAL INDICATION: Male, 28 years old with history of dka; TECHNIQUE: Single frontal view of the chest is obtained. FINDINGS: There is no focal air space opacity, pleural effusion, or pneumothorax seen. The cardiac silhouette size is within normal limits. The osseous structures are intact. IMPRESSION: No acute process. [facility], , 09/23/2024 3:08 PM
[2024-09-23 15:14] LABS: Glucose,Whole Blood 295 mg/dL (70-110)
[2024-09-23] MEDS: INSULIN REGULAR 100 UNIT in SODIUM CHLORIDE 0.9% 100 ML IV SCH (15:15)
[2024-09-23] MEDS: D5-0.45% NACL WITH KCL 20MEQ/L 1,000 ML IV SCH (15:32)
[2024-09-23 15:43] LABS: Band Neutrophils % 6 %; Lymphocytes # (M) 5.32 k/uL (1.0-4.8); Monocytes # (M) 0.82 k/uL (0-1.0); Neutrophils % (M) 79 %; Nucleated Red Blood Cells 0 /100 WBC (0-0); Total Cells Counted 100
--- NOTE | 2024-09-23 15:56 | ED ---
General Adult HPI - General Chief complaint: Nausea/Vomiting/Diarrhea Stated complaint: Vomiting, PAULINA Time Seen by Provider: 09/23/24 13:00 Source: patient, RN notes reviewed, old records reviewed Mode of arrival: wheelchair Limitations: no limitations - History of Present Illness Initial comments: Patient is a 28-year-old male who presents emergency department complaining of nausea and vomiting. Unable to hold anything down. Has a history of diabetes that is insulin-dependent. States he last checked his sugars yesterday and they were between 100-200. States he has had elevated sugars today. Thought that he may have food poisoning. However nausea and vomiting if not improved. Has noticed that his breathing is gotten fast as well. Does have a history of DKA. Presents for further evaluation. No fevers, chills, cough. No obvious sick contacts. States he has been compliant with his insulin however has not checked her sugars much over the last day or so. - Related Data Home Medications Medication Instructions Recorded Confirmed No Known Home Medications 09/23/24 09/23/24 Allergies Allergy/AdvReac Type Severity Reaction Status Date / Time No Known Allergies Allergy Verified 09/23/24 13:38 Review of Systems ROS Statement: Those systems with pertinent positive or pertinent negative responses have been documented in the HPI. Review of Systems: CONST: Denies fever EYES: Denies blurry vision ENT: Denies nasal congestion C/V: Denies Chest pain RESP: Denies shortness of breath GI: Denies abdominal pain : Denies dysuria SKIN: Denies rash. MSK: Denies joint pain. NEURO: Denies headache ROS Other: All systems not noted in ROS Statement are negative. Past Medical History Past Medical History: Diabetes Mellitus, GERD/Reflux Additional Past Medical History / Comment(s): IBS History of Any Multi-Drug Resistant Organisms: None Reported Past Surgical History: No Surgical Hx Reported Additional Past Surgical History / Comment(s): pilonidal cyst Past Psychological History: No Psychological Hx Reported Smoking Status: Current every day smoker Past Alcohol Use History: None Reported Past Drug Use History: Marijuana General Exam - General Exam Comments Initial Comments: General: He is in mild distress with increased work of breathing. Kusmal respirations. HEAD: Normal with no signs of head trauma. EYES: PERRLA, EOMI, conjunctiva normal, no discharge. ENT: Hearing grossly intact, normal oropharynx. Dry mucous membranes. RESPIRATORY: Clear breath sounds bilaterally. No wheezes, rales, or rhonchi. No hypoxia C/V: Tachycardic with a regular rhythm. S1 and S2 auscultated, no edema, peripheral pulses 2+ and intact throughout ABD: Abd is soft, nontender, nondistended EXT: Normal range of motion, no obvious deformity SKIN: No rashes or lesions observed on exposed skin. NEURO: Alert and oriented x 4. Limitations: no limitations Course Vital Signs 09/23/24 09/23/24 09/23/24 12:55 13:29 15:06 Temperature 97.8 F Pulse Rate 147 H 147 H 114 H Respiratory 18 26 H 18 Rate Blood Pressure 109/72 107/79 116/69 O2 Sat by Pulse 99 100 100 Oximetry 09/23/24 09/23/24 09/23/24 16:00 17:38 18:42 Temperature 98.5 F Pulse Rate 106 H 113 H 110 H Respiratory 22 18 16 Rate Blood Pressure 106/58 111/66 114/65 O2 Sat by Pulse 99 99 99 Oximetry Procedures - [place] Protocol (Time Out) Nurse: María Morales Medical Decision Making - Medical Decision Making Was pt. sent in by a medical professional or institution (, PA, DIGITAL PRODUCTION ARTIST, urgent care, hospital, or fpc...) When possible be specific @ -No Did you speak to anyone other than the patient for history (EMS, parent, family, police, friend...)? What history was obtained from this source @ -No Did you review nursing and triage notes (agree or disagree)? Why? @ -I reviewed and agree with nursing and triage notes Were old charts reviewed (outside hosp., previous admission, EMS record, old EKG, old radiological studies, urgent care reports/EKG's, fpc records)? Report findings @ -Old charts reviewed confirming patient is a type I diabetic on insulin. Differential Diagnosis (chest pain, altered mental status, abdominal pain women, abdominal pain men, vaginal bleeding, weakness, fever, dyspnea, syncope, headache, dizziness, GI bleed, back pain, seizure, CVA, palpatations, mental health, musculoskeletal)? @ -DKA, hyperkalemia, dehydration. This list is not all inclusive. EKG interpreted by me (3pts min.). @ -As above X-rays interpreted by me (1pt min.). @ -Chest x-ray reveals no obvious acute cardiopulmonary process. CT interpreted by me (1pt min.). @ -None done U/S interpreted by me (1pt. min.). @ -None done What testing was considered but not performed or refused? (CT, X-rays, U/S, labs)? Why? @ -None What meds were considered but not given or refused? Why? @ -None Did you discuss the management of the patient with other professionals (professionals i.e. DrMary, PA, DIGITAL PRODUCTION ARTIST, lab, RT, psych nurse, criminal justice social worker, geotechnical operating engineer, teacher, ship's officer, case resource manager)? Give summary @ -Discussed with ICU attending, Dr. Felix and who accepted the admission. Discussed with admitting team, SETH Zamora of [facility] who accepted the admission. Was smoking cessation discussed for >3mins.? @ -No Was critical care preformed (if so, how long)? @ -Yes, 35 minutes. Were there social determinants of health that impacted care today? How? (Homelessness, low income, unemployed, alcoholism, drug addiction, transportation, low edu. Level, literacy, decrease access to med. care, shelter, rehab)? @ -No Was there de-escalation of care discussed even if they declined (Discuss DNR or withdrawal of care, Hospice)? DNR status @ -No What co-morbidities impacted this encounter? (DM, HTN, Smoking, COPD, CAD, Cancer, CVA, ARF, Chemo, Hep., AIDS, mental health diagnosis, sleep apnea, morbid obesity)? @ -Insulin-dependent diabetes Was patient admitted / discharged? Hospital course, mention meds given and route, prescriptions, significant lab abnormalities, going to OR and other pertinent info. @ -Based on patient's presentation and physical exam, patient presents emergency department with high blood sugars, nausea and vomiting. I do suspect DKA. Will obtain DKA workup. We also obtain chest x-ray. He is given 2-1/2 L fluid bolus as we wait for labs. Patient was in agreement this plan. Vitals remarkable for sinus tachycardia with heart rates in the 140s. EKG shows no evidence of acute ischemic process. On initial EKG, concern for hyperkalemia with peaked T waves and therefore patient was administered hyperkalemia cocktail Chest x-ray shows no obvious acute cardiopulmonary process. Labs remarkable for leukocytosis of 40.9 and lactic acidosis of 8.7. Both of these are likely secondary to the high anion gap metabolic acidosis caused by DKA. No suspicion for infection at this time. Strong suspicion for DKA. This is all likely secondary to dehydration we will continue to monitor. Patient has 4+ ketones supporting DKA as well as positive acetone. ABG shows a pH of 6.95, pCO2 of 18 and HCO3 of 4. On reevaluation, the patient. He was started on DKA protocol with insulin drip. Patient was in agreement this plan. Due to patient's laboratory studies as well as his tachycardia I did discuss the case with ICU attending Dr. Felix who accepted the admission to the ICU. I spoke with the admitting provider, [facility] SETH Zamora who accepted the admission. Undiagnosed new problem with uncertain prognosis? @ -No Drug Therapy requiring intensive monitoring for toxicity (Heparin, Nitro, Insulin, Cardizem)? @ -No Were any procedures done? @ -No Diagnosis/symptom? @ -DKA, dehydration Acute, or Chronic, or Acute on Chronic? @ -Acute Uncomplicated (without systemic symptoms) or Complicated (systemic symptoms)? @ -Complicated Side effects of treatment? @ -No Exacerbation, Progression, or Severe Exacerbation? @ -No Poses a threat to life or bodily function? How? (Chest pain, [place], [place], pneumonia, PE, COPD, DKA, ARF, appy, cholecystitis, CVA, Diverticulitis, Homicidal, Suicidal, threat to staff... and all critical care pts) @ -Yes - Lab Data Result diagrams: 09/23/24 13:22 09/23/24 15:52 Lab Results 09/23/24 09/23/24 09/23/24 Range/Units 12:59 13:22 13:22 WBC 40.9 H (3.8-10.6) k/uL RBC 4.97 (4.30-5.90) m/uL Hgb 16.5 (13.0-17.5) gm/dL Hct 52.2 (39.0-53.0) % MCV 105.1 H (80.0-100.0) fL MCH 33.2 (25.0-35.0) pg MCHC 31.6 (31.0-37.0) g/dL RDW 13.2 (11.5-15.5) % Plt Count 428 (150-450) k/uL MPV 9.0 Neutrophils % (Manual) 79 % Band Neuts % (Manual) 6 % Lymphocytes % (Manual) 13 % Monocytes % (Manual) 2 % Neutrophils # (Manual) 34.70 H (1.3-7.7) k/uL Lymphocytes # (Manual) 5.32 H (1.0-4.8) k/uL Monocytes # (Manual) 0.82 (0-1.0) k/uL Nucleated RBCs 0 (0-0) /100 WBC Manual Slide Review Performed Hypochromasia Moderate Macrocytosis Slight PT 10.9 (10.0-12.5) sec INR 1.0 (<1.2) APTT 22.1 (22.0-30.0) sec VBG pH (7.31-7.41) VBG pCO2 (37-51) mmHg VBG HCO3 (24-28) mmol/L Sodium (137-145) mmol/L Potassium (3.5-5.1) mmol/L Chloride (98-107) mmol/L Carbon Dioxide (22-30) mmol/L Anion Gap mmol/L BUN (9-20) mg/dL Creatinine (0.66-1.25) mg/dL Est GFR (CKD-EPI)AfAm (>60 ml/min/1.73 sqM) Est GFR (CKD-EPI)NonAf (>60 ml/min/1.73 sqM) Glucose (74-99) mg/dL POC Glucose (mg/dL) >600 H* (70-110) mg/dL POC Glu Metal Miner ID Sheri Nicole Lactic Ac Sepsis Rflx Plasma Lactic Acid Hernando (0.7-2.0) mmol/L Calcium (8.4-10.2) mg/dL Total Bilirubin (0.2-1.3) mg/dL AST (17-59) U/L ALT (4-49) U/L Alkaline Phosphatase (38-126) U/L Total Protein (6.3-8.2) g/dL Albumin (3.5-5.0) g/dL Amylase (30-110) U/L Lipase (23-300) U/L Acetone, Qual (Negative) Influenza Type A (PCR) (Not Detectd) Influenza Type B (PCR) (Not Detectd) RSV (PCR) (Not Detectd) SARS-CoV-2 (PCR) (Not Detectd) 09/23/24 09/23/24 09/23/24 Range/Units 13:22 13:22 13:22 WBC (3.8-10.6) k/uL RBC (4.30-5.90) m/uL Hgb (13.0-17.5) gm/dL Hct (39.0-53.0) % MCV (80.0-100.0) fL MCH (25.0-35.0) pg MCHC (31.0-37.0) g/dL RDW (11.5-15.5) % Plt Count (150-450) k/uL MPV Neutrophils % (Manual) % Band Neuts % (Manual) % Lymphocytes % (Manual) % Monocytes % (Manual) % Neutrophils # (Manual) (1.3-7.7) k/uL Lymphocytes # (Manual) (1.0-4.8) k/uL Monocytes # (Manual) (0-1.0) k/uL Nucleated RBCs (0-0) /100 WBC Manual Slide Review Hypochromasia Macrocytosis PT (10.0-12.5) sec INR (<1.2) APTT (22.0-30.0) sec VBG pH (7.31-7.41) VBG pCO2 (37-51) mmHg VBG HCO3 (24-28) mmol/L Sodium 137 (137-145) mmol/L Potassium 5.1 (3.5-5.1) mmol/L Chloride 93 L (98-107) mmol/L Carbon Dioxide <5 L* (22-30) mmol/L Anion Gap mmol/L BUN 19 (9-20) mg/dL Creatinine 1.27 H (0.66-1.25) mg/dL Est GFR (CKD-EPI)AfAm 88 (>60 ml/min/1.73 sqM) Est GFR (CKD-EPI)NonAf 76 (>60 ml/min/1.73 sqM) Glucose 612 H* (74-99) mg/dL POC Glucose (mg/dL) (70-110) mg/dL POC Glu Metal Miner ID Lactic Ac Sepsis Rflx Plasma Lactic Acid Hernando 8.7 H* (0.7-2.0) mmol/L Calcium 9.4 (8.4-10.2) mg/dL Total Bilirubin 0.4 (0.2-1.3) mg/dL AST 46 (17-59) U/L ALT 67 H (4-49) U/L Alkaline Phosphatase 249 H (38-126) U/L Total Protein 7.9 (6.3-8.2) g/dL Albumin 5.3 H (3.5-5.0) g/dL Amylase 60 (30-110) U/L Lipase 49 (23-300) U/L Acetone, Qual Positive (Negative) Influenza Type A (PCR) Not Detected (Not Detectd) Influenza Type B (PCR) Not Detected (Not Detectd) RSV (PCR) Not Detected (Not Detectd) SARS-CoV-2 (PCR) Not Detected (Not Detectd) 09/23/24 09/23/24 Range/Units 13:22 14:14 WBC (3.8-10.6) k/uL RBC (4.30-5.90) m/uL Hgb (13.0-17.5) gm/dL Hct (39.0-53.0) % MCV (80.0-100.0) fL MCH (25.0-35.0) pg MCHC (31.0-37.0) g/dL RDW (11.5-15.5) % Plt Count (150-450) k/uL MPV Neutrophils % (Manual) % Band Neuts % (Manual) % Lymphocytes % (Manual) % Monocytes % (Manual) % Neutrophils # (Manual) (1.3-7.7) k/uL Lymphocytes # (Manual) (1.0-4.8) k/uL Monocytes # (Manual) (0-1.0) k/uL Nucleated RBCs (0-0) /100 WBC Manual Slide Review Hypochromasia Macrocytosis PT (10.0-12.5) sec INR (<1.2) APTT (22.0-30.0) sec VBG pH 6.95 L* (7.31-7.41) VBG pCO2 18 L* (37-51) mmHg VBG HCO3 4 L* (24-28) mmol/L Sodium (137-145) mmol/L Potassium (3.5-5.1) mmol/L Chloride (98-107) mmol/L Carbon Dioxide (22-30) mmol/L Anion Gap mmol/L BUN (9-20) mg/dL Creatinine (0.66-1.25) mg/dL Est GFR (CKD-EPI)AfAm (>60 ml/min/1.73 sqM) Est GFR (CKD-EPI)NonAf (>60 ml/min/1.73 sqM) Glucose (74-99) mg/dL POC Glucose (mg/dL) (70-110) mg/dL POC Glu Metal Miner ID Lactic Ac Sepsis Rflx Y Plasma Lactic Acid Hernando (0.7-2.0) mmol/L Calcium (8.4-10.2) mg/dL Total Bilirubin (0.2-1.3) mg/dL AST (17-59) U/L ALT (4-49) U/L Alkaline Phosphatase (38-126) U/L Total Protein (6.3-8.2) g/dL Albumin (3.5-5.0) g/dL Amylase (30-110) U/L Lipase (23-300) U/L Acetone, Qual (Negative) Influenza Type A (PCR) (Not Detectd) Influenza Type B (PCR) (Not Detectd) RSV (PCR) (Not Detectd) SARS-CoV-2 (PCR) (Not Detectd) - EKG Data -: EKG Interpreted by Me EKG Comments: 12-lead Electrocardiogram Interpretation Note EKG was reviewed and interpreted by myself. 12-lead ECG performed at 1305 is interpreted by me as revealing sinus tachycardia at a rate of 148 beats per minute. [place] is rightward deviated. NE interval is 93 ms, QRS duration is 94 ms, QTc is 363 ms.. There were no ST or T wave abnormalities to suggest myocardial ischemia or injury. R wave progression across the precordium was satisfactory. By my interpretation this EKG is non-diagnostic for acute ischemia. 12-lead Electrocardiogram Interpretation Note EKG was reviewed and interpreted by myself. 12-lead ECG performed at 1414 is interpreted by me as revealing sinus tachycardia at a rate of 134 beats per minute. Right axis deviation. NE interval is 142 ms, QRS duration is 94 ms, QTc is 376 ms.. There were no ST or T wave abnormalities to suggest myocardial ischemia or injury. R wave progression across the precordium was satisfactory. By my interpretation this EKG is non-diagnostic for acute ischemia. Critical Care Time Critical Care Time: Yes Total Critical Care Time: 35 Disposition Clinical Impression: DKA (diabetic ketoacidosis), Dehydration Disposition: ADMITTED IP TO THIS [facility] Condition: Serious Time of Disposition: 14:30
[2024-09-23 15:57] LABS: Appearance,Urine Clear (Clear); Bilirubin,Urine Negative (Negative); Blood,Urine Negative (Negative); Color,Urine Colorless; Glucose,Urine (UA) 4+ (Negative); Leukocyte Esterase,Urine Negative (Negative); Nitrite,Urine Negative (Negative); Protein,Urine Trace (Negative); Urobilinogen,Urine <2.0 mg/dL (<2.0)
--- NOTE | 2024-09-23 16:01 | P.CNPUL ---
History of Present Illness Consult date: 09/23/24 Chief complaint: DKA, hyperglycemia History of present illness: 28-year-old male patient, type I diabetic maintained on NovoLog sign scale coverage on outpatient basis. The patient states that he takes insulin according to sliding scale following each meal and on average he uses approximately 30 units of NovoLog and a daily basis. He did encounter nausea and emesis over the past 3 days which she suspects was related to food poisoning. The sandwich from a gas station, chicken sandwich and since then the patient has been having recurrent emesis. He presented to the emergency department today with hyperglycemia. His blood sugar was 612. He had a anion gap metabolic acidosis. Serum bicarb was less than 5. His white cell count was at 40.9 with a hemoglobin 16.5 and a platelet count of 428. LFTs showed an AST of 46, ALT of 67, alk phos is 249. Bilirubin was 0.4. Acetone in the blood was positive. Viral 4 Plex was negative. Chest x-ray showed no acute process. The patient was already given a total of 2.5 L of IV fluids and the patient is currently on normal saline to 250 cc an hour and insulin to be started at 0.1 units/kg. Despite his acidosis, the patient is awake and communicating. He was in sinus tachycardia at time of admission and the heart rate is improved. Hemodynamically stable. Pulse ox 99% room air oxygen. No cough or sputum production. No nausea or emesis at this point in time. No chest pain. No focal neurological deficits. No frequent hospitalization for DKA's. Review of Systems Constitutional: Reports fatigue, Reports malaise, Reports weakness Eyes: bilateral blurred vision, denies as per HPI, denies bulging eye, denies de creased vision, denies diplopia, denies discharge, denies dry eye, denies irritation, denies itching, denies pain, denies photophobia, denies loss of peripheral vision, denies loss of vision, denies tunnel vision/blind spots Ears: deny: decreased hearing, ear discharge, earache, tinnitus Ears, nose, mouth and throat: Reports as per HPI Breasts: absent: as per HPI, gynecomastia Cardiovascular: Reports as per HPI Respiratory: Reports as per HPI Gastrointestinal: Reports as per HPI, Reports nausea, Reports vomiting Genitourinary: Reports as per HPI Musculoskeletal: Reports as per HPI Musculoskeletal: absent: ankle pain, ankle stiffness, ankle swelling, as per HPI, elbow pain, elbow stiffness, elbow swelling, foot pain, foot stiffness, foot swelling, hand pain, hand stiffness, hand swelling, hip pain, hip stiffness, hip swelling, knee pain, knee stiffness, knee swelling, shoulder pain, shoulder stiffness, shoulder swelling, wrist pain, wrist stiffness, wrist swelling Integumentary: Reports as per HPI Neurological: Reports as per HPI Psychiatric: Reports as per HPI Endocrine: Reports excessive thirst, Reports fatigue, Reports nocturia, Reports polydipsia, Reports polyuria Hematologic/Lymphatic: Reports as per HPI Allergic/Immunologic: Reports as per HPI Past Medical History Past Medical History: Diabetes Mellitus, GERD/Reflux Additional Past Medical History / Comment(s): IBS History of Any Multi-Drug Resistant Organisms: None Reported Past Surgical History: No Surgical Hx Reported Additional Past Surgical History / Comment(s): pilonidal cyst Past Psychological History: No Psychological Hx Reported Smoking Status: Current every day smoker Past Alcohol Use History: None Reported Past Drug Use History: Marijuana Medications and Allergies Home Medications Medication Instructions Recorded Confirmed Type No Known Home Medications 09/23/24 09/23/24 History Allergies Allergy/AdvReac Type Severity Reaction Status Date / Time No Known Allergies Allergy Verified 09/23/24 13:38 Physical Exam Vitals: Vital Signs Temp Pulse Resp BP Pulse Ox 09/23/24 15:06 114 H 18 116/69 100 09/23/24 13:29 147 H 26 H 107/79 100 09/23/24 12:55 97.8 F 147 H 18 109/72 99 Intake and Output 09/23/24 09/23/24 09/23/24 06:59 14:59 22:59 Other: Weight 63.503 kg The patient appeared well nourished and normally developed. Vital signs as documented. Head exam is unremarkable. No scleral icterus or corneal arcus noted. Neck is without jugular venous distension, thyromegaly, or carotid bruits. Carotid upstrokes are brisk bilaterally. The mucous membranes are quite dry Lungs are clear to auscultation and percussion. Cardiac exam reveals the PMI to be normally sized and situated. Rhythm is regular and the patient is in sinus tachycardia. First and second heart sounds normal. No murmurs, rubs or gallops. Abdominal exam reveals normal bowel sounds, no masses, no organomegaly and no aortic enlargement. Extremities are nonedematous and both femoral and pedal pulses are normal. Examination of the skin revealed no evidence of significant rashes, suspicious appearing nevi or other concerning lesions. Neurologically, the patient is awake and alert and the patient does not have any focal neurological deficit. Cranial nerves are essentially intact. Results - Laboratory Findings CBC and BMP: 09/23/24 13:22 09/23/24 13:22 PT/INR, D-dimer PT 10.9 sec (10.0-12.5) 09/23/24 13:22 INR 1.0 (<1.2) 09/23/24 13:22 Abnormal lab findings: Abnormal Labs 09/23/24 09/23/24 09/23/24 12:59 13:22 13:22 WBC 40.9 H MCV 105.1 H Neutrophils # (Manual) 34.70 H Lymphocytes # (Manual) 5.32 H VBG pH VBG pCO2 VBG HCO3 Chloride 93 L Carbon Dioxide <5 L* Creatinine 1.27 H Glucose 612 H* POC Glucose (mg/dL) >600 H* Plasma Lactic Acid Hernando ALT 67 H Alkaline Phosphatase 249 H Albumin 5.3 H 09/23/24 09/23/24 09/23/24 13:22 13:22 15:12 WBC MCV Neutrophils # (Manual) Lymphocytes # (Manual) VBG pH 6.95 L* VBG pCO2 18 L* VBG HCO3 4 L* Chloride Carbon Dioxide Creatinine Glucose POC Glucose (mg/dL) 295 H Plasma Lactic Acid Hernando 8.7 H* ALT Alkaline Phosphatase Albumin - Diagnostic Findings Chest x-ray: image reviewed Assessment and Plan Plan: DKA with severe anion gap metabolic acidosis Diabetes mellitus type 1 maintained on [facility] sign scale coverage on outpatient basis Acute leukocytosis, likely reactive Acute kidney injury secondary to above Sinus tachycardia, likely secondary to vascular volume depletion and dehydration, improving Nausea and emesis over the past 3 days, likely related to food poisoning. Currently inactive Plan Will treat DKA per protocol Already resuscitated with 2.5 L of IV fluids Continue normal saline at rate of 200 cc an hour Insulin drip per protocol Monitor hourly blood sugars Monitor electrolytes every 4 hours Monitor white cell count and heart rate Admitted to ICU Will continue to follow
[2024-09-23 16:03] LABS: Ketones,Urine 4+ (Negative)
[2024-09-23 16:23] LABS: Glucose,Whole Blood 182 mg/dL (70-110)
[2024-09-23 16:29] LABS: African American GFR (CKD) >90 (>60 ml/min/1.73 sqM); Anion Gap 21 mmol/L; Blood Urea Nitrogen 17 mg/dL (9-20); Carbon Dioxide 10 mmol/L (22-30); Chloride 105 mmol/L (98-107); Glucose 234 mg/dL (74-99); Non-African American GFR(CKD) >90 (>60 ml/min/1.73 sqM); Phosphorus 3.5 mg/dL (2.5-4.5); Potassium 3.9 mmol/L (3.5-5.1); Sodium 136 mmol/L (137-145)
--- NOTE | 2024-09-23 17:08 | P.HPIM ---
History of Present Illness H&P Date: 09/23/24 28 year old M with PMH of Type 1 DM presents to the ED for persistent nausea and vomiting. Patient reports eating a chicken salad sandwhich from the gas station prior to symptoms starting. He denies any headache, fever, chills, chest pain, shortness of breath, palpitations, lightheadedness changes in urination or bowel habits. In the ED he underwent extensive evaluation. BP 109/72, HR 147, RR 18, T 97.8F, 99% on RA. CBC, Coag panel, CMP significant for WBC 40/9, MCV 105.1, Cl 93, bicarb < 5, Cr 1.27, glu 612, ALT 67, alk phos 249, alb 5.3. VBG pH 6.95, pCO2 18. Amylase and Lipase 60 and 49 respectively. UA 4+ ketones, 4+ glu. Acetone +. COVID, RSV, Flu neg. CXR neg. EKG sinus tachycardia. Patient is given 2 amps of bicarb, 10 units IV insulin, 1g Ca gluconate, 10g Lokelma, 3.5L NS bolus and admitted to ICU for further workup and management. General: not toxic, no distress, appears at stated age Derm: warm, dry Head: atraumatic, normocephalic, symmetric Eyes: EOMI, no lid lag, anicteric sclera Mouth: no lip lesion, mucus membranes moist Cardiovascular: S1 S2 tachy. No m/r/g Lungs: Tachpneic. Clear to auscultation bilaterally. Ext: no gross muscle atrophy, no edema, no contractures Neuro: no focal neuro deficits Psych: Alert, oriented, appropriate affect Based on my assessment of this patient, this patient meets a high complexity level of care. Diabetic ketoacidosis: Start insulin drip. D5 1/2NS at 150 cc/hr. Telemetry monitoring. Accuchecks Q1H. BMP Q4H. SIRS: Likley related to above. No signs of active infection. Monitor fever profile. Transaminitis: Possibly due to severe dehydration. Recheck CMP in the AM. Acute kidney injury: Likely due to severe dehydration. Recheck CMP in the AM. CODE STATUS: FULL CODE DVT Prophylaxis: Lovenox SQ GI Prophylaxis: Protonix IV Designated medical POA if patient is not able to make medical decisions for themselves: I have reviewed the following customer experience consultant notes: Pulmonary note, ER note. I have reviewed the results of the following tests: As above. I have ordered the following tests: As above. I have discussed the care of this patient with the following independent historian: YENY. I have independently interpreted the following test below: CXR. EKG. I have discussed the management of this patient with the following physician: Past Medical History Past Medical History: Diabetes Mellitus, GERD/Reflux Additional Past Medical History / Comment(s): IBS History of Any Multi-Drug Resistant Organisms: None Reported Past Surgical History: No Surgical Hx Reported Additional Past Surgical History / Comment(s): pilonidal cyst Past Psychological History: No Psychological Hx Reported Smoking Status: Current every day smoker Past Alcohol Use History: None Reported Past Drug Use History: Marijuana Medications and Allergies Home Medications Medication Instructions Recorded Confirmed Type No Known Home Medications 09/23/24 09/23/24 History Allergies Allergy/AdvReac Type Severity Reaction Status Date / Time No Known Allergies Allergy Verified 09/23/24 13:38 Physical Exam Vitals: Vital Signs Temp Pulse Resp BP Pulse Ox 09/23/24 16:00 106 H 22 106/58 99 09/23/24 15:06 114 H 18 116/69 100 09/23/24 13:29 147 H 26 H 107/79 100 09/23/24 12:55 97.8 F 147 H 18 109/72 99 Intake and Output 09/23/24 09/23/24 09/23/24 06:59 14:59 22:59 Intake Total 7.269 Balance 7.269 Intake: Intake, IV Titration 7.269 Amount Insulin Regular 100 unit 7.269 In Sodium Chloride 0.9% 100 ml @ 0.1 UNITS/KG/HR 6.414 mls/hr IV .[id number] [facility] Rx#:[id number] Other: Weight 63.503 kg Results CBC & Chem 7: 09/23/24 13:22 09/23/24 15:52 Labs: Abnormal Lab Results - Last 24 Hours (Table) 09/23/24 09/23/24 09/23/24 Range/Units 12:59 13:22 13:22 WBC 40.9 H (3.8-10.6) k/uL MCV 105.1 H (80.0-100.0) fL Neutrophils # (Manual) 34.70 H (1.3-7.7) k/uL Lymphocytes # (Manual) 5.32 H (1.0-4.8) k/uL VBG pH (7.31-7.41) VBG pCO2 (37-51) mmHg VBG HCO3 (24-28) mmol/L Sodium (137-145) mmol/L Chloride 93 L (98-107) mmol/L Carbon Dioxide <5 L* (22-30) mmol/L Creatinine 1.27 H (0.66-1.25) mg/dL Glucose 612 H* (74-99) mg/dL POC Glucose (mg/dL) >600 H* (70-110) mg/dL Plasma Lactic Acid Hernando (0.7-2.0) mmol/L ALT 67 H (4-49) U/L Alkaline Phosphatase 249 H (38-126) U/L Albumin 5.3 H (3.5-5.0) g/dL Urine Protein (Negative) Urine Glucose (UA) (Negative) Urine Ketones (Negative) 09/23/24 09/23/24 09/23/24 Range/Units 13:22 13:22 15:12 WBC (3.8-10.6) k/uL MCV (80.0-100.0) fL Neutrophils # (Manual) (1.3-7.7) k/uL Lymphocytes # (Manual) (1.0-4.8) k/uL VBG pH 6.95 L* (7.31-7.41) VBG pCO2 18 L* (37-51) mmHg VBG HCO3 4 L* (24-28) mmol/L Sodium (137-145) mmol/L Chloride (98-107) mmol/L Carbon Dioxide (22-30) mmol/L Creatinine (0.66-1.25) mg/dL Glucose (74-99) mg/dL POC Glucose (mg/dL) 295 H (70-110) mg/dL Plasma Lactic Acid Hernando 8.7 H* (0.7-2.0) mmol/L ALT (4-49) U/L Alkaline Phosphatase (38-126) U/L Albumin (3.5-5.0) g/dL Urine Protein (Negative) Urine Glucose (UA) (Negative) Urine Ketones (Negative) 09/23/24 09/23/2425 Range/Units 15:18 15:52 16:22 WBC (3.8-10.6) k/uL MCV (80.0-100.0) fL Neutrophils # (Manual) (1.3-7.7) k/uL Lymphocytes # (Manual) (1.0-4.8) k/uL VBG pH (7.31-7.41) VBG pCO2 (37-51) mmHg VBG HCO3 (24-28) mmol/L Sodium 136 L (137-145) mmol/L Chloride (98-107) mmol/L Carbon Dioxide 10 L (22-30) mmol/L Creatinine (0.66-1.25) mg/dL Glucose 234 H (74-99) mg/dL POC Glucose (mg/dL) 182 H (70-110) mg/dL Plasma Lactic Acid Hernando (0.7-2.0) mmol/L ALT (4-49) U/L Alkaline Phosphatase (38-126) U/L Albumin (3.5-5.0) g/dL Urine Protein Trace H (Negative) Urine Glucose (UA) 4+ H (Negative) Urine Ketones 4+ H (Negative)
[2024-09-23 17:29] LABS: Glucose,Whole Blood 145 mg/dL (70-110)
[2024-09-23 18:35] LABS: Glucose,Whole Blood 125 mg/dL (70-110)
[2024-09-23 19:24] LABS: Glucose,Whole Blood 129 mg/dL (70-110)
[2024-09-23 20:24] LABS: Glucose,Whole Blood 160 mg/dL (70-110)
[2024-09-23 21:15] LABS: African American GFR (CKD) >90 (>60 ml/min/1.73 sqM); Anion Gap 12 mmol/L; Blood Urea Nitrogen 13 mg/dL (9-20); Carbon Dioxide 19 mmol/L (22-30); Chloride 104 mmol/L (98-107); Glucose 149 mg/dL (74-99); Non-African American GFR(CKD) >90 (>60 ml/min/1.73 sqM); Potassium 4.2 mmol/L (3.5-5.1); Sodium 135 mmol/L (137-145)
[2024-09-23 21:28] LABS: Glucose,Whole Blood 143 mg/dL (70-110)
[2024-09-23 22:33] LABS: Glucose,Whole Blood 274 mg/dL (70-110)
[2024-09-23 23:07] LABS: Glucose,Whole Blood 280 mg/dL (70-110)
[2024-09-23] MEDS: ONDANSETRON 4 MG/2 ML VIAL IVP PRN (23:24)
[2024-09-24 00:03] LABS: Glucose,Whole Blood 279 mg/dL (70-110)
[2024-09-24 01:11] LABS: Glucose,Whole Blood 200 mg/dL (70-110)
[2024-09-24 02:02] LABS: Glucose,Whole Blood 168 mg/dL (70-110)
[2024-09-24 03:04] LABS: Glucose,Whole Blood 137 mg/dL (70-110)
[2024-09-24 03:12] LABS: African American GFR (CKD) >90 (>60 ml/min/1.73 sqM); Anion Gap 12 mmol/L; Blood Urea Nitrogen 11 mg/dL (9-20); Calcium 8.3 mg/dL (8.4-10.2); Carbon Dioxide 19 mmol/L (22-30); Chloride 103 mmol/L (98-107); Glucose 206 mg/dL (74-99); Non-African American GFR(CKD) >90 (>60 ml/min/1.73 sqM); Potassium 3.9 mmol/L (3.5-5.1); Sodium 134 mmol/L (137-145)
[2024-09-24 04:01] LABS: HCT 37.2 % (39.0-53.0); MCH 31.9 pg (25.0-35.0); Mean Platelet Volume 7.9; Platelet Count 268 k/uL (150-450); RBC 3.85 m/uL (4.30-5.90); RDW 13.2 % (11.5-15.5); WBC 21.9 k/uL (3.8-10.6)
[2024-09-24 04:03] LABS: Glucose,Whole Blood 139 mg/dL (70-110)
[2024-09-24 04:19] LABS: HGB 12.3 gm/dL (13.0-17.5)
[2024-09-24 04:22] LABS: MCV 96.7 fL (80.0-100.0)
[2024-09-24 04:24] LABS: ALT 44 U/L (4-49); AST 31 U/L (17-59); African American GFR (CKD) >90 (>60 ml/min/1.73 sqM); Albumin 3.3 g/dL (3.5-5.0); Alkaline Phosphatase 182 U/L (38-126); Anion Gap 8 mmol/L; Blood Urea Nitrogen 10 mg/dL (9-20); Calcium 8.5 mg/dL (8.4-10.2); Carbon Dioxide 23 mmol/L (22-30); Chloride 104 mmol/L (98-107); Glucose 144 mg/dL (74-99); Non-African American GFR(CKD) >90 (>60 ml/min/1.73 sqM); Potassium 3.8 mmol/L (3.5-5.1); Sodium 135 mmol/L (137-145); Total Bilirubin 0.6 mg/dL (0.2-1.3); Total Protein 5.7 g/dL (6.3-8.2)
[2024-09-24 04:57] LABS: Glucose,Whole Blood 172 mg/dL (70-110)
[2024-09-24] MEDS: INSULIN NPH 100 UNIT/ML 10 ML VIAL SQ ONE (05:04)
[2024-09-24 05:56] LABS: Glucose,Whole Blood 177 mg/dL (70-110)
[2024-09-24 06:43] LABS: Glucose,Whole Blood 177 mg/dL (70-110)
[2024-09-24] MEDS: INSULIN ASPART (NovoLOG) 100 UNIT/ML VIAL SQ SCH (09:30)
[2024-09-24] MEDS: PANTOPRAZOLE 40 MG/10 ML VIAL IVP SCH (09:31)
[2024-09-24] MEDS: ENOXAPARIN 40 MG/0.4 ML SYRINGE SQ SCH (09:31)
[2024-09-24 09:40] LABS: Glucose,Whole Blood 187 mg/dL (70-110)
[2024-09-24] MEDS: INSULIN DETEMIR (LEVEMIR) 100 UNIT/ML SYR SQ SCH (10:04)
[2024-09-24 11:38] LABS: Glucose,Whole Blood 209 mg/dL (70-110)
--- NOTE | 2024-09-24 16:30 | P.PN ---
Subjective Progress Note Date: 09/24/24 28 year old M with PMH of Type 1 DM presents to the ED for persistent nausea and vomiting. Patient reports eating a chicken salad sandwhich from the gas station prior to symptoms starting. He denies any headache, fever, chills, chest pain, shortness of breath, palpitations, lightheadedness changes in urination or bowel habits. In the ED he underwent extensive evaluation. BP 109/72, HR 147, RR 18, T 97.8F, 99% on RA. CBC, Coag panel, CMP significant for WBC 40/9, MCV 105.1, Cl 93, bicarb < 5, Cr 1.27, glu 612, ALT 67, alk phos 249, alb 5.3. VBG pH 6.95, pCO2 18. Amylase and Lipase 60 and 49 respectively. UA 4+ ketones, 4+ glu. Acetone +. COVID, RSV, Flu neg. CXR neg. EKG sinus tachycardia. Patient is given 2 amps of bicarb, 10 units IV insulin, 1g Ca gluconate, 10g Lokelma, 3.5L NS bolus and admitted to ICU for further workup and management. Started on insulin drip and IV hydration. DKA resolved now transitioned to SQ insulin. 09/24 Patient was seen and examined. No acute events overnight. Feeling well. Feels like a bubble stuck in his chest. CBC and CMP significant for 21.9, RBC 3.85, Hg 12.3, Hct 37.2, Na 135, Cr 0.53, glu 144. General: not toxic, no distress, appears at stated age Derm: warm, dry Head: atraumatic, normocephalic, symmetric Eyes: EOMI, no lid lag, anicteric sclera Mouth: no lip lesion, mucus membranes moist Cardiovascular: S1 S2 reg. No m/r/g Lungs: Breathing comfortably. Clear to auscultation bilaterally. Ext: no gross muscle atrophy, no edema, no contractures Neuro: no focal neuro deficits Psych: Alert, oriented, appropriate affect Based on my assessment of this patient, this patient meets a high complexity level of care. Diabetes mellitus with hyperglycemia, DKA resolved: Accuchecks ACHS along with hypoglycemic precautions. Levemir 10 units QAM. Diabetic diet. SIRS: Likley related to above. No signs of active infection. Monitor fever profile. Resolved: YULIET, Transaminitis CODE STATUS: FULL CODE DVT Prophylaxis: Lovenox SQ GI Prophylaxis: Protonix IV Designated medical POA if patient is not able to make medical decisions for themselves: I have reviewed the following business systems consultant notes: I have reviewed the results of the following tests: CBC, CMP, POC glucose I have ordered the following tests: CBC, BMP in the AM I have discussed the care of this patient with the following independent historian: I have independently interpreted the following test below: I have discussed the management of this patient with the following physician: Objective - Vital Signs Vital signs: Vital Signs Temp 98.0 F 09/24/24 13:06 Pulse 93 09/24/24 13:06 Resp 18 09/24/24 13:06 BP 120/79 09/24/24 13:06 Pulse Ox 100 09/24/24 13:06 FiO2 Intake & Output 09/23/24 09/24/24 09/24/24 18:59 06:59 18:59 Intake Total 18.066 18.143 Balance 18.066 18.143 Weight 63.503 kg 63.503 kg Intake: Intake, IV Titration 18.066 18.143 Amount Insulin Regular 100 unit 18.066 18.143 In Sodium Chloride 0.9% 100 ml @ 0.1 UNITS/KG/HR 6.414 mls/hr IV .[id number] [facility] Rx#:[id number] - Labs CBC & Chem 7: 09/24/24 03:32 09/24/24 03:32 Labs: Abnormal Lab Results - Last 24 Hours (Table) 09/23/24 09/23/24 09/23/24 Range/Units 15:52 16:22 16:57 WBC (3.8-10.6) k/uL RBC (4.30-5.90) m/uL Hgb (13.0-17.5) gm/dL Hct (39.0-53.0) % Sodium 136 L (137-145) mmol/L Carbon Dioxide 10 L (22-30) mmol/L Creatinine (0.66-1.25) mg/dL Glucose 234 H (74-99) mg/dL POC Glucose (mg/dL) 182 H (70-110) mg/dL Plasma Lactic Acid Hernando 4.4 H* (0.7-2.0) mmol/L Calcium (8.4-10.2) mg/dL Alkaline Phosphatase (38-126) U/L Total Protein (6.3-8.2) g/dL Albumin (3.5-5.0) g/dL 09/23/24 09/23/24 09/23/24 Range/Units 17:27 18:33 19:22 WBC (3.8-10.6) k/uL RBC (4.30-5.90) m/uL Hgb (13.0-17.5) gm/dL Hct (39.0-53.0) % Sodium (137-145) mmol/L Carbon Dioxide (22-30) mmol/L Creatinine (0.66-1.25) mg/dL Glucose (74-99) mg/dL POC Glucose (mg/dL) 145 H 125 H 129 H (70-110) mg/dL Plasma Lactic Acid Hernando (0.7-2.0) mmol/L Calcium (8.4-10.2) mg/dL Alkaline Phosphatase (38-126) U/L Total Protein (6.3-8.2) g/dL Albumin (3.5-5.0) g/dL 09/23/24 09/23/24 09/23/24 Range/Units 20:01 20:23 21:26 WBC (3.8-10.6) k/uL RBC (4.30-5.90) m/uL Hgb (13.0-17.5) gm/dL Hct (39.0-53.0) % Sodium 135 L (137-145) mmol/L Carbon Dioxide 19 L (22-30) mmol/L Creatinine 0.61 L (0.66-1.25) mg/dL Glucose 149 H (74-99) mg/dL POC Glucose (mg/dL) 160 H 143 H (70-110) mg/dL Plasma Lactic Acid Hernando (0.7-2.0) mmol/L Calcium (8.4-10.2) mg/dL Alkaline Phosphatase (38-126) U/L Total Protein (6.3-8.2) g/dL Albumin (3.5-5.0) g/dL 09/23/24 09/23/24 09/24/24 Range/Units 22:32 23:06 00:01 WBC (3.8-10.6) k/uL RBC (4.30-5.90) m/uL Hgb (13.0-17.5) gm/dL Hct (39.0-53.0) % Sodium (137-145) mmol/L Carbon Dioxide (22-30) mmol/L Creatinine (0.66-1.25) mg/dL Glucose (74-99) mg/dL POC Glucose (mg/dL) 274 H 280 H 279 H (70-110) mg/dL Plasma Lactic Acid Hernando (0.7-2.0) mmol/L Calcium (8.4-10.2) mg/dL Alkaline Phosphatase (38-126) U/L Total Protein (6.3-8.2) g/dL Albumin (3.5-5.0) g/dL 09/24/24 09/24/24 09/24/24 Range/Units 01:04 01:09 02:01 WBC (3.8-10.6) k/uL RBC (4.30-5.90) m/uL Hgb (13.0-17.5) gm/dL Hct (39.0-53.0) % Sodium 134 L (137-145) mmol/L Carbon Dioxide 19 L (22-30) mmol/L Creatinine 0.60 L (0.66-1.25) mg/dL Glucose 206 H (74-99) mg/dL POC Glucose (mg/dL) 200 H 168 H (70-110) mg/dL Plasma Lactic Acid Hernando (0.7-2.0) mmol/L Calcium 8.3 L (8.4-10.2) mg/dL Alkaline Phosphatase (38-126) U/L Total Protein (6.3-8.2) g/dL Albumin (3.5-5.0) g/dL 09/24/24 09/24/24 09/24/24 Range/Units 03:02 03:32 03:32 WBC 21.9 H (3.8-10.6) k/uL RBC 3.85 L (4.30-5.90) m/uL Hgb 12.3 L D (13.0-17.5) gm/dL Hct 37.2 L (39.0-53.0) % Sodium 135 L (137-145) mmol/L Carbon Dioxide (22-30) mmol/L Creatinine 0.53 L (0.66-1.25) mg/dL Glucose 144 H (74-99) mg/dL POC Glucose (mg/dL) 137 H (70-110) mg/dL Plasma Lactic Acid Hernando (0.7-2.0) mmol/L Calcium (8.4-10.2) mg/dL Alkaline Phosphatase 182 H (38-126) U/L Total Protein 5.7 L (6.3-8.2) g/dL Albumin 3.3 L (3.5-5.0) g/dL 09/24/24 09/24/24 09/24/24 Range/Units 04:02 04:45 05:55 WBC (3.8-10.6) k/uL RBC (4.30-5.90) m/uL Hgb (13.0-17.5) gm/dL Hct (39.0-53.0) % Sodium (137-145) mmol/L Carbon Dioxide (22-30) mmol/L Creatinine (0.66-1.25) mg/dL Glucose (74-99) mg/dL POC Glucose (mg/dL) 139 H 172 H 177 H (70-110) mg/dL Plasma Lactic Acid Hernando (0.7-2.0) mmol/L Calcium (8.4-10.2) mg/dL Alkaline Phosphatase (38-126) U/L Total Protein (6.3-8.2) g/dL Albumin (3.5-5.0) g/dL 09/24/24 09/24/24 09/24/24 Range/Units 06:43 09:29 11:36 WBC (3.8-10.6) k/uL RBC (4.30-5.90) m/uL Hgb (13.0-17.5) gm/dL Hct (39.0-53.0) % Sodium (137-145) mmol/L Carbon Dioxide (22-30) mmol/L Creatinine (0.66-1.25) mg/dL Glucose (74-99) mg/dL POC Glucose (mg/dL) 177 H 187 H 209 H (70-110) mg/dL Plasma Lactic Acid Hernando (0.7-2.0) mmol/L Calcium (8.4-10.2) mg/dL Alkaline Phosphatase (38-126) U/L Total Protein (6.3-8.2) g/dL Albumin (3.5-5.0) g/dL
[2024-09-24 17:13] LABS: Glucose,Whole Blood 97 mg/dL (70-110)
--- NOTE | 2024-09-24 17:13 | XR ---
EXAMINATION TYPE: XR chest 1V portable DATE OF EXAM: 09/24/2024 4:46 PM COMPARISON: 09/23/2024 CLINICAL INDICATION: Male, 28 years old with history of SOB, DKA TECHNIQUE: XR chest 1V portable view(s) obtained. FINDINGS: The heart size is normal. The pulmonary vasculature is normal. The lungs are clear. IMPRESSION: 1. No acute pulmonary process. [facility], Workstation: [facility], 09/24/2024 5:11 PM
--- NOTE | 2024-09-24 20:30 | P.PN ---
Subjective Progress Note Date: 09/24/24 28-year-old male patient, type I diabetic maintained on NovoLog sign scale maddi [email or web address] on outpatient basis. The patient states that he takes insulin according to sliding scale following each meal and on average he uses approximately 30 units of NovoLog and a daily basis. He did encounter nausea and emesis over the past 3 days which she suspects was related to food poisoning. The sandwich from a gas station, chicken sandwich and since then the patient has been having recurrent emesis. He presented to the emergency department today with hyperglycemia. His blood sugar was 612. He had a anion gap metabolic acidosis. Serum bicarb was less than 5. His white cell count was at 40.9 with a hemoglobin 16.5 and a platelet count of 428. LFTs showed an AST of 46, ALT of 67, alk phos is 249. Bilirubin was 0.4. Acetone in the blood was positive. Viral 4 Plex was negative. Chest x-ray showed no acute process. The patient was already given a total of 2.5 L of IV fluids and the patient is currently on normal saline to 250 cc an hour and insulin to be started at 0.1 units/kg. Despite his acidosis, the patient is awake and communicating. He was in sinus tachycardia at time of admission and the heart rate is improved. Hemodynamically stable. Pulse ox 99% room air oxygen. No cough or sputum production. No nausea or emesis at this point in time. No chest pain. No focal neurological deficits. No frequent hospitalization for DKA's. 09/24/2024, the patient is awake and alert without any complaints on room air oxygen. Anion gap is closed and the gap is at 8 with a serum bicarb of 23. Electrolytes are all within normal limits. White cell count is dropped down to 21.9. The patient was taken off the insulin drip and the patient is currently on Levemir insulin 10 units plus a sliding scale coverage. He is afebrile. Hemodynamically stable. Room air oxygen. Hemoglobin is at 4.3. LFTs are also improving. No new complaints otherwise for now. Feeling well. Objective - Vital Signs Vital signs: Vital Signs Temp 98.5 F 09/23/24 18:42 Pulse 92 09/24/24 06:51 Resp 18 09/24/24 06:51 BP 128/77 09/24/24 06:51 Pulse Ox 99 09/24/24 06:51 FiO2 Intake & Output 09/23/24 09/24/24 09/24/24 18:59 06:59 18:59 Intake Total 18.066 18.143 Balance 18.066 18.143 Weight 63.503 kg Intake: Intake, IV Titration 18.066 18.143 Amount Insulin Regular 100 unit 18.066 18.143 In Sodium Chloride 0.9% 100 ml @ 0.1 UNITS/KG/HR 6.414 mls/hr IV .[id number] [facility] Rx#:[id number] - Exam The patient appeared well nourished and normally developed. Vital signs as documented. Head exam is unremarkable. No scleral icterus or corneal arcus noted. Neck is without jugular venous distension, thyromegaly, or carotid bruits. Carotid upstrokes are brisk bilaterally. The mucous membranes are quite dry Lungs are clear to auscultation and percussion. Cardiac exam reveals the PMI to be normally sized and situated. Rhythm is regular and the patient is in sinus tachycardia. First and second heart sounds normal. No murmurs, rubs or gallops. Abdominal exam reveals normal bowel sounds, no masses, no organomegaly and no aortic enlargement. Extremities are nonedematous and both femoral and pedal pulses are normal. Examination of the skin revealed no evidence of significant rashes, suspicious appearing nevi or other concerning lesions. Neurologically, the patient is awake and alert and the patient does not have any focal neurological deficit. Cranial nerves are essentially intact. - Labs CBC & Chem 7: 09/24/24 03:32 09/24/24 03:32 Labs: Abnormal Lab Results - Last 24 Hours (Table) 09/23/24 09/23/24 09/23/24 Range/Units 12:59 13:22 13:22 WBC 40.9 H (3.8-10.6) k/uL RBC (4.30-5.90) m/uL Hgb (13.0-17.5) gm/dL Hct (39.0-53.0) % MCV 105.1 H (80.0-100.0) fL Neutrophils # (Manual) 34.70 H (1.3-7.7) k/uL Lymphocytes # (Manual) 5.32 H (1.0-4.8) k/uL VBG pH (7.31-7.41) VBG pCO2 (37-51) mmHg VBG HCO3 (24-28) mmol/L Sodium (137-145) mmol/L Chloride 93 L (98-107) mmol/L Carbon Dioxide <5 L* (22-30) mmol/L Creatinine 1.27 H (0.66-1.25) mg/dL Glucose 612 H* (74-99) mg/dL POC Glucose (mg/dL) >600 H* (70-110) mg/dL Plasma Lactic Acid Hernando (0.7-2.0) mmol/L Calcium (8.4-10.2) mg/dL ALT 67 H (4-49) U/L Alkaline Phosphatase 249 H (38-126) U/L Total Protein (6.3-8.2) g/dL Albumin 5.3 H (3.5-5.0) g/dL Urine Protein (Negative) Urine Glucose (UA) (Negative) Urine Ketones (Negative) 09/23/24 09/23/24 09/23/24 Range/Units 13:22 13:22 15:12 WBC (3.8-10.6) k/uL RBC (4.30-5.90) m/uL Hgb (13.0-17.5) gm/dL Hct (39.0-53.0) % MCV (80.0-100.0) fL Neutrophils # (Manual) (1.3-7.7) k/uL Lymphocytes # (Manual) (1.0-4.8) k/uL VBG pH 6.95 L* (7.31-7.41) VBG pCO2 18 L* (37-51) mmHg VBG HCO3 4 L* (24-28) mmol/L Sodium (137-145) mmol/L Chloride (98-107) mmol/L Carbon Dioxide (22-30) mmol/L Creatinine (0.66-1.25) mg/dL Glucose (74-99) mg/dL POC Glucose (mg/dL) 295 H (70-110) mg/dL Plasma Lactic Acid Hernando 8.7 H* (0.7-2.0) mmol/L Calcium (8.4-10.2) mg/dL ALT (4-49) U/L Alkaline Phosphatase (38-126) U/L Total Protein (6.3-8.2) g/dL Albumin (3.5-5.0) g/dL Urine Protein (Negative) Urine Glucose (UA) (Negative) Urine Ketones (Negative) 09/23/24 09/23/24 09/23/24 Range/Units 15:18 15:52 16:22 WBC (3.8-10.6) k/uL RBC (4.30-5.90) m/uL Hgb (13.0-17.5) gm/dL Hct (39.0-53.0) % MCV (80.0-100.0) fL Neutrophils # (Manual) (1.3-7.7) k/uL Lymphocytes # (Manual) (1.0-4.8) k/uL VBG pH (7.31-7.41) VBG pCO2 (37-51) mmHg VBG HCO3 (24-28) mmol/L Sodium 136 L (137-145) mmol/L Chloride (98-107) mmol/L Carbon Dioxide 10 L (22-30) mmol/L Creatinine (0.66-1.25) mg/dL Glucose 234 H (74-99) mg/dL POC Glucose (mg/dL) 182 H (70-110) mg/dL Plasma Lactic Acid Hernando (0.7-2.0) mmol/L Calcium (8.4-10.2) mg/dL ALT (4-49) U/L Alkaline Phosphatase (38-126) U/L Total Protein (6.3-8.2) g/dL Albumin (3.5-5.0) g/dL Urine Protein Trace H (Negative) Urine Glucose (UA) 4+ H (Negative) Urine Ketones 4+ H (Negative) 09/23/24 09/23/24 09/23/24 Range/Units 16:57 17:27 18:33 WBC (3.8-10.6) k/uL RBC (4.30-5.90) m/uL Hgb (13.0-17.5) gm/dL Hct (39.0-53.0) % MCV (80.0-100.0) fL Neutrophils # (Manual) (1.3-7.7) k/uL Lymphocytes # (Manual) (1.0-4.8) k/uL VBG pH (7.31-7.41) VBG pCO2 (37-51) mmHg VBG HCO3 (24-28) mmol/L Sodium (137-145) mmol/L Chloride (98-107) mmol/L Carbon Dioxide (22-30) mmol/L Creatinine (0.66-1.25) mg/dL Glucose (74-99) mg/dL POC Glucose (mg/dL) 145 H 125 H (70-110) mg/dL Plasma Lactic Acid Hernando 4.4 H* (0.7-2.0) mmol/L Calcium (8.4-10.2) mg/dL ALT (4-49) U/L Alkaline Phosphatase (38-126) U/L Total Protein (6.3-8.2) g/dL Albumin (3.5-5.0) g/dL Urine Protein (Negative) Urine Glucose (UA) (Negative) Urine Ketones (Negative) 09/23/24 09/23/24 09/23/24 Range/Units 19:22 20:01 20:23 WBC (3.8-10.6) k/uL RBC (4.30-5.90) m/uL Hgb (13.0-17.5) gm/dL Hct (39.0-53.0) % MCV (80.0-100.0) fL Neutrophils # (Manual) (1.3-7.7) k/uL Lymphocytes # (Manual) (1.0-4.8) k/uL VBG pH (7.31-7.41) VBG pCO2 (37-51) mmHg VBG HCO3 (24-28) mmol/L Sodium 135 L (137-145) mmol/L Chloride (98-107) mmol/L Carbon Dioxide 19 L (22-30) mmol/L Creatinine 0.61 L (0.66-1.25) mg/dL Glucose 149 H (74-99) mg/dL POC Glucose (mg/dL) 129 H 160 H (70-110) mg/dL Plasma Lactic Acid Hernando (0.7-2.0) mmol/L Calcium (8.4-10.2) mg/dL ALT (4-49) U/L Alkaline Phosphatase (38-126) U/L Total Protein (6.3-8.2) g/dL Albumin (3.5-5.0) g/dL Urine Protein (Negative) Urine Glucose (UA) (Negative) Urine Ketones (Negative) 09/23/24 09/23/24 09/23/24 Range/Units 21:26 22:32 23:06 WBC (3.8-10.6) k/uL RBC (4.30-5.90) m/uL Hgb (13.0-17.5) gm/dL Hct (39.0-53.0) % MCV (80.0-100.0) fL Neutrophils # (Manual) (1.3-7.7) k/uL Lymphocytes # (Manual) (1.0-4.8) k/uL VBG pH (7.31-7.41) VBG pCO2 (37-51) mmHg VBG HCO3 (24-28) mmol/L Sodium (137-145) mmol/L Chloride (98-107) mmol/L Carbon Dioxide (22-30) mmol/L Creatinine (0.66-1.25) mg/dL Glucose (74-99) mg/dL POC Glucose (mg/dL) 143 H 274 H 280 H (70-110) mg/dL Plasma Lactic Acid Hernando (0.7-2.0) mmol/L Calcium (8.4-10.2) mg/dL ALT (4-49) U/L Alkaline Phosphatase (38-126) U/L Total Protein (6.3-8.2) g/dL Albumin (3.5-5.0) g/dL Urine Protein (Negative) Urine Glucose (UA) (Negative) Urine Ketones (Negative) 09/24/24 09/24/24 09/24/24 Range/Units 00:01 01:04 01:09 WBC (3.8-10.6) k/uL RBC (4.30-5.90) m/uL Hgb (13.0-17.5) gm/dL Hct (39.0-53.0) % MCV (80.0-100.0) fL Neutrophils # (Manual) (1.3-7.7) k/uL Lymphocytes # (Manual) (1.0-4.8) k/uL VBG pH (7.31-7.41) VBG pCO2 (37-51) mmHg VBG HCO3 (24-28) mmol/L Sodium 134 L (137-145) mmol/L Chloride (98-107) mmol/L Carbon Dioxide 19 L (22-30) mmol/L Creatinine 0.60 L (0.66-1.25) mg/dL Glucose 206 H (74-99) mg/dL POC Glucose (mg/dL) 279 H 200 H (70-110) mg/dL Plasma Lactic Acid Hernando (0.7-2.0) mmol/L Calcium 8.3 L (8.4-10.2) mg/dL ALT (4-49) U/L Alkaline Phosphatase (38-126) U/L Total Protein (6.3-8.2) g/dL Albumin (3.5-5.0) g/dL Urine Protein (Negative) Urine Glucose (UA) (Negative) Urine Ketones (Negative) 09/24/24 09/24/24 09/24/24 Range/Units 02:01 03:02 03:32 WBC 21.9 H (3.8-10.6) k/uL RBC 3.85 L (4.30-5.90) m/uL Hgb 12.3 L D (13.0-17.5) gm/dL Hct 37.2 L (39.0-53.0) % MCV (80.0-100.0) fL Neutrophils # (Manual) (1.3-7.7) k/uL Lymphocytes # (Manual) (1.0-4.8) k/uL VBG pH (7.31-7.41) VBG pCO2 (37-51) mmHg VBG HCO3 (24-28) mmol/L Sodium (137-145) mmol/L Chloride (98-107) mmol/L Carbon Dioxide (22-30) mmol/L Creatinine (0.66-1.25) mg/dL Glucose (74-99) mg/dL POC Glucose (mg/dL) 168 H 137 H (70-110) mg/dL Plasma Lactic Acid Ehrnando (0.7-2.0) mmol/L Calcium (8.4-10.2) mg/dL ALT (4-49) U/L Alkaline Phosphatase (38-126) U/L Total Protein (6.3-8.2) g/dL Albumin (3.5-5.0) g/dL Urine Protein (Negative) Urine Glucose (UA) (Negative) Urine Ketones (Negative) 09/24/24 09/24/24 09/24/24 Range/Units 03:32 04:02 04:45 WBC (3.8-10.6) k/uL RBC (4.30-5.90) m/uL Hgb (13.0-17.5) gm/dL Hct (39.0-53.0) % MCV (80.0-100.0) fL Neutrophils # (Manual) (1.3-7.7) k/uL Lymphocytes # (Manual) (1.0-4.8) k/uL VBG pH (7.31-7.41) VBG pCO2 (37-51) mmHg VBG HCO3 (24-28) mmol/L Sodium 135 L (137-145) mmol/L Chloride (98-107) mmol/L Carbon Dioxide (22-30) mmol/L Creatinine 0.53 L (0.66-1.25) mg/dL Glucose 144 H (74-99) mg/dL POC Glucose (mg/dL) 139 H 172 H (70-110) mg/dL Plasma Lactic Acid Hernando (0.7-2.0) mmol/L Calcium (8.4-10.2) mg/dL ALT (4-49) U/L Alkaline Phosphatase 182 H (38-126) U/L Total Protein 5.7 L (6.3-8.2) g/dL Albumin 3.3 L (3.5-5.0) g/dL Urine Protein (Negative) Urine Glucose (UA) (Negative) Urine Ketones (Negative) 09/24/24 09/24/24 Range/Units 05:55 06:43 WBC (3.8-10.6) k/uL RBC (4.30-5.90) m/uL Hgb (13.0-17.5) gm/dL Hct (39.0-53.0) % MCV (80.0-100.0) fL Neutrophils # (Manual) (1.3-7.7) k/uL Lymphocytes # (Manual) (1.0-4.8) k/uL VBG pH (7.31-7.41) VBG pCO2 (37-51) mmHg VBG HCO3 (24-28) mmol/L Sodium (137-145) mmol/L Chloride (98-107) mmol/L Carbon Dioxide (22-30) mmol/L Creatinine (0.66-1.25) mg/dL Glucose (74-99) mg/dL POC Glucose (mg/dL) 177 H 177 H (70-110) mg/dL Plasma Lactic Acid Hernando (0.7-2.0) mmol/L Calcium (8.4-10.2) mg/dL ALT (4-49) U/L Alkaline Phosphatase (38-126) U/L Total Protein (6.3-8.2) g/dL Albumin (3.5-5.0) g/dL Urine Protein (Negative) Urine Glucose (UA) (Negative) Urine Ketones (Negative) Assessment and Plan Plan: DKA with severe anion gap metabolic acidosis, recovered and resolved, the patient was started on Levemir 10 units and insulin scale coverage Diabetes mellitus type 1 maintained on NovoLog sign scale coverage on outpatient basis Acute leukocytosis, likely reactive, improving Acute kidney injury secondary to above, improving Sinus tachycardia, likely secondary to vascular volume depletion and dehydration, improved Nausea and emesis over the past 3 days, likely related to food poisoning. Currently inactive Plan Patient has been transitioned to long-acting insulin with Levemir M gap is closed and serum bicarb is normalized White cell count is improving No critical care issues and the rest of the management will be kept up to the medical group and the critical care services will sign off
[2024-09-24 20:42] LABS: Glucose,Whole Blood 99 mg/dL (70-110)
[2024-09-24] MEDS: MAG HYDROX/AL HYDROX/SIMETH 30 ML CUP PO STA (21:35)
[2024-09-25 01:28] LABS: Glucose,Whole Blood 165 mg/dL (70-110)
[2024-09-25 01:55] VITALS: RESP 16
[2024-09-25 07:12] LABS: Glucose,Whole Blood 314 mg/dL (70-110)
[2024-09-25 09:45] LABS: HCT 38.6 % (39.0-53.0); HGB 12.6 gm/dL (13.0-17.5); MCH 32.5 pg (25.0-35.0); MCHC 32.7 g/dL (31.0-37.0); MCV 99.4 fL (80.0-100.0); Mean Platelet Volume 7.5; Platelet Count 196 k/uL (150-450); RBC 3.88 m/uL (4.30-5.90); RDW 12.7 % (11.5-15.5); WBC 9.9 k/uL (3.8-10.6)
[2024-09-25 10:07] LABS: African American GFR (CKD) >90 (>60 ml/min/1.73 sqM); Anion Gap 8 mmol/L; Blood Urea Nitrogen 11 mg/dL (9-20); Calcium 8.5 mg/dL (8.4-10.2); Carbon Dioxide 26 mmol/L (22-30); Chloride 98 mmol/L (98-107); Glucose 355 mg/dL (74-99); Non-African American GFR(CKD) >90 (>60 ml/min/1.73 sqM); Potassium 3.8 mmol/L (3.5-5.1); Sodium 132 mmol/L (137-145)
[2024-09-25] MEDS: MAG HYDROX/AL HYDROX/SIMETH 30 ML CUP PO STA (10:09)
[2024-09-25] MEDS: LIDOCAINE VISCOUS 2% 15 ML CUP PO ONE (10:09)
[2024-09-25] MEDS: HYOSCYAMINE ELIXIR 250 MCG/10 ML BTL PO STA (10:09)
[2024-09-25 12:04] LABS: Glucose,Whole Blood 196 mg/dL (70-110)
[2024-09-25 12:33] VITALS: BP 124/81; PULSE 81; TEMP 98.5
--- NOTE | 2024-09-25 16:17 | P.DS ---
Providers Date of admission: 09/23/24 14:36 Expected date of discharge: 09/25/24 Attending physician: Raymon Soto Consults: 09/23/24 14:33 Consult Physician Stat Consulting Provider: Pepito Felix Consult Reason/Comments: DKA, ICU admit Do you want consulting provider notified?: Already Contacted Primary care physician: Ajay Guallpa MD Hospital Course: 28 year old M with PMH of Type 1 DM presents to the ED for persistent nausea and vomiting. Patient reports eating a chicken salad sandwhich from the gas station prior to symptoms starting. He denies any headache, fever, chills, chest pain, shortness of breath, palpitations, lightheadedness changes in urination or bowel habits. In the ED he underwent extensive evaluation. BP 109/72, HR 147, RR 18, T 97.8F, 99% on RA. CBC, Coag panel, CMP significant for WBC 40/9, MCV 105.1, Cl 93, bicarb < 5, Cr 1.27, glu 612, ALT 67, alk phos 249, alb 5.3. VBG pH 6.95, pCO2 18. Amylase and Lipase 60 and 49 respectively. UA 4+ ketones, 4+ glu. Acetone +. COVID, RSV, Flu neg. CXR neg. EKG sinus tachycardia. Patient is given 2 amps of bicarb, 10 units IV insulin, 1g Ca gluconate, 10g Lokelma, 3.5L NS bolus and admitted to ICU for further workup and management. Started on insulin drip and IV hydration. DKA resolved now transitioned to SQ insulin. 09/24 Patient was seen and examined. No acute events overnight. Feeling well. Feels like a bubble stuck in his chest. CBC and CMP significant for 21.9, RBC 3.85, Hg 12.3, Hct 37.2, Na 135, Cr 0.53, glu 144. 09/25 Patient was seen and examined. Doing well. Tolerating small amounts of food. CXR done yesterday unremarkable. CBC and BMP significant for RBC 3.88, Hg 12.6, Hct 38.6, Na 132, Cr 0.55, glu 355. Trop < 0.012. Plans for discharge home today. Advised to continue home dosage of insulin (short acting insulin on sliding scale TID with meals). Follow up with PCP within 1-2 days of discharge. General: not toxic, no distress, appears at stated age Derm: warm, dry Head: atraumatic, normocephalic, symmetric Eyes: EOMI, no lid lag, anicteric sclera Mouth: no lip lesion, mucus membranes moist Cardiovascular: S1 S2 reg. No m/r/g Lungs: Breathing comfortably. Clear to auscultation bilaterally. Ext: no gross muscle atrophy, no edema, no contractures Neuro: no focal neuro deficits Psych: Alert, oriented, appropriate affect Discharge Diagnosis: Diabetes mellitus with hyperglycemia, DKA resolved SIRS Resolved: YULIET, Transaminitis This complex discharge took 35 minutes to complete. Patient Condition at Discharge: Stable Plan - Discharge Summary Discharge Rx Participant: No New Discharge Prescriptions: New Pantoprazole [Protonix] 40 mg PO DAILY #30 tab INSULIN ASPART (NovoLOG) [NovoLOG (formulary)] See Protocol SQ [id number] each Discharge Medication List INSULIN ASPART (NovoLOG) [NovoLOG (formulary)] See Protocol SQ [id number] each 09/25/24 [Rx] Pantoprazole [Protonix] 40 mg PO DAILY #30 tab 09/25/24 [Rx] Follow up Appointment(s)/Referral(s): Ajay Guallpa MD [Primary Care Provider] - 1 Week (please call the office to schedule a follow up appointment) Patient Instructions/Handouts: Pantoprazole (By mouth) Discharge Disposition: HOME SELF-CARE
== END 2024-09-25 13:46 | disposition home or self-care (01) | DRG 638 ==
LOC: EC 12:54 → 2SICU 14:36 → 4SSUR 09-24 06:13 → 5NMEDONC 09-24 17:53
PROVIDERS: ADMIT Student in an Organized Health Care Education/Training Program; ATTEND Student in an Organized Health Care Education/Training Program
DX: E10.10 Type 1 diabetes mellitus with ketoacidosis without coma (principal); N17.9 Acute kidney failure, unspecified; R65.10 Systemic inflammatory response syndrome (SIRS) of non-infectious origin without acute organ dysfunction; E86.0 Dehydration; F17.200 Nicotine dependence, unspecified, uncomplicated; K58.0 Irritable bowel syndrome with diarrhea; R11.2 Nausea with vomiting, unspecified; R74.01 Elevation of levels of liver transaminase levels; R00.0 Tachycardia, unspecified; I49.8 Other specified cardiac arrhythmias; K21.9 Gastro-esophageal reflux disease without esophagitis; Z79.4 Long term (current) use of insulin; Z71.3 Dietary counseling and surveillance; Z28.311 Partially vaccinated for COVID-19; Z28.21 Immunization not carried out because of patient refusal; Z20.822 Contact with and (suspected) exposure to COVID-19
CPT/HCPCS: 36415; 71045; 80048; 80051; 80053; 81003; 82009; 82150; 82565; 82803; 82947; 83605; 83690; 84100; 84484; 84520; 85025; 85027; 85610; 85730; 87636; 93005; 96365; 96366; 96372; 96375; 99291

== ENCOUNTER 2024-10-20 18:38 | Inpatient (IN) | payer OTHER ==
--- NOTE | 2024-10-20 19:12 | ED ---
General Adult HPI - General Chief complaint: Recheck/Abnormal Lab/Rx Stated complaint: Hyperglycemia Time Seen by Provider: 10/20/24 18:43 Source: patient, EMS, RN notes reviewed Mode of arrival: EMS Limitations: no limitations - History of Present Illness Initial comments: Patient is a 28-year-old male presenting to the emergency department with concer ns with sinus congestion and hyperglycemia. Patient has had sinus congestion for a few days with cough. Decreased appetite and taste. Today patient has had high blood sugars all day ranging 3-400. - Related Data Home Medications Medication Instructions Recorded Confirmed INSULIN ASPART (NovoLOG) [NovoLOG See Protocol SQ DIRECTED 10/20/24 10/20/24 (formulary)] Previous Rx's Medication Instructions Recorded Pantoprazole [Protonix] 40 mg PO DAILY #30 tab 09/25/24 Allergies Allergy/AdvReac Type Severity Reaction Status Date / Time No Known Allergies Allergy Verified 10/20/24 20:29 Review of Systems ROS Statement: Those systems with pertinent positive or pertinent negative responses have been documented in the HPI. ROS Other: All systems not noted in ROS Statement are negative. Constitutional: Denies: fever Eyes: Denies: eye pain ENT: Reports: congestion Respiratory: Reports: cough, wheezes Endocrine: Reports: fatigue. Denies: polydipsia, polyuria Gastrointestinal: Denies: abdominal pain, vomiting Genitourinary: Denies: dysuria Past Medical History Past Medical History: Diabetes Mellitus, GERD/Reflux Additional Past Medical History / Comment(s): IBS History of Any Multi-Drug Resistant Organisms: None Reported Past Surgical History: No Surgical Hx Reported Additional Past Surgical History / Comment(s): pilonidal cyst Past Anesthesia/Blood Transfusion Reactions: No Reported Reaction Past Psychological History: No Psychological Hx Reported Smoking Status: Current every day smoker, Vaper Past Alcohol Use History: None Reported Past Drug Use History: Marijuana General Exam Limitations: no limitations General appearance: alert, in no apparent distress Head exam: Present: normocephalic Eye exam: Present: normal appearance ENT exam: Present: normal oropharynx Neck exam: Present: normal inspection Respiratory exam: Present: rhonchi Cardiovascular Exam: Present: regular rate, normal rhythm GI/Abdominal exam: Present: soft. Absent: tenderness Extremities exam: Present: normal inspection. Absent: pedal edema, calf tenderness Neurological exam: Present: alert Psychiatric exam: Present: normal affect, normal mood Skin exam: Present: normal color Course Vital Signs 10/20/24 10/20/24 10/20/24 18:41 20:21 20:29 Temperature 98.3 F Pulse Rate 105 H 104 H 128 H Respiratory 18 Rate Blood Pressure 137/86 O2 Sat by Pulse 94 L Oximetry Medical Decision Making - Medical Decision Making Was pt. sent in by a medical professional or institution (, PA, [facility]ONNA[facility] MIXER, urgent care, hospital, or jail...) When possible be specific @ -No Did you speak to anyone other than the patient for history (EMS, parent, family, police, friend...)? What history was obtained from this source @ -No Did you review nursing and triage notes (agree or disagree)? Why? @ -I reviewed and agree with nursing and triage notes Were old charts reviewed (outside hosp., previous admission, EMS record, old EKG, old radiological studies, urgent care reports/EKG's, jail records)? Report findings @ -No old charts were reviewed Differential Diagnosis (chest pain, altered mental status, abdominal pain women, abdominal pain men, vaginal bleeding, weakness, fever, dyspnea, syncope, headache, dizziness, GI bleed, back pain, seizure, CVA, palpatations, mental health, musculoskeletal)? @ -Differential Fever: Pneumonia, viral URI, endocarditis, myocarditis, pericarditis, otitis, sinusitis, peritonsillar Abscess, retropharyngeal Abscess, epiglottitis, peritonitis, appendicitis, Evon cystitis, diverticulitis, hepatitis, colitis, UTI, PID, TOA, pyelonephritis, prostatitis, epididymitis, meningitis, encephalitis, pulmonary embolism, CVA, thyroid storm, pancreatitis, adrenal crisis, cavernous sinus thrombosis, this is not meant to be an all-inclusive list. EKG interpreted by me (3pts min.). @ -As above X-rays interpreted by me (1pt min.). @ -Chest x-ray shows nonspecific findings CT interpreted by me (1pt min.). @ -None done U/S interpreted by me (1pt. min.). @ -None done What testing was considered but not performed or refused? (CT, X-rays, U/S, labs)? Why? @ -None What meds were considered but not given or refused? Why? @ -None Did you discuss the management of the patient with other professionals (professionals i.e. DrMary, PA, [employer] M[employer]ER, lab, RT, psych nurse, social service assistant, cut off machine helper, teacher, tax compliance officer, case loader operator)? Give summary @ -Case was discussed with Dr. Sandoval who will admit covering Dr. [place] Was smoking cessation discussed for >3mins.? @ -No Was critical care preformed (if so, how long)? @ -32 minutes critical care time Were there social determinants of health that impacted care today? How? (Homelessness, low income, unemployed, alcoholism, drug addiction, t ransportation, low edu. Level, literacy, decrease access to med. care, penitentiary, rehab)? @ -No Was there de-escalation of care discussed even if they declined (Discuss DNR or withdrawal of care, Hospice)? DNR status @ -No What co-morbidities impacted this encounter? (DM, HTN, Smoking, COPD, CAD, Cance r, CVA, ARF, Chemo, Hep., AIDS, mental health diagnosis, sleep apnea, morbid obesity)? @ -History of diabetes Was patient admitted / discharged? Hospital course, mention meds given and route, prescriptions, significant lab abnormalities, going to OR and other pertinent info. @ -Patient presents with concern for high blood sugar and illness. Positive influenza A. Patient does appear to be in mild diabetic ketoacidosis. Patient will be admitted. Patient reevaluated and updated. Admission orders written. Undiagnosed new problem with uncertain prognosis? @ -No Drug Therapy requiring intensive monitoring for toxicity (Heparin, Nitro, Insulin, Cardizem)? @ -Insulin drip Were any procedures done? @ -No Diagnosis/symptom? @ -Influenza A, diabetic ketoacidosis Acute, or Chronic, or Acute on Chronic? @ -Acute, acute Uncomplicated (without systemic symptoms) or Complicated (systemic symptoms)? @ -Default Side effects of treatment? @ -No Exacerbation, Progression, or Severe Exacerbation? @ -No Poses a threat to life or bodily function? How? (Chest pain, USA, MS, pneumonia, PE, COPD, DKA, ARF, appy, cholecystitis, CVA, Diverticulitis, Homicidal, Suicidal, threat to staff... and all critical care pts) @ - threat to metabolic function - Lab Data Result diagrams: 10/20/24 19:23 10/20/24 19:23 Lab Results 10/20/24 10/20/24 10/20/24 Range/Units 19:23 19:23 19:23 WBC 14.0 H (3.8-10.6) k/uL RBC 4.08 L (4.30-5.90) m/uL Hgb 12.6 L (13.0-17.5) gm/dL Hct 40.3 (39.0-53.0) % MCV 98.8 (80.0-100.0) fL MCH 30.9 (25.0-35.0) pg MCHC 31.3 (31.0-37.0) g/dL RDW 12.3 (11.5-15.5) % Plt Count 312 (150-450) k/uL MPV 8.2 Neutrophils % 87 % Lymphocytes % 6 % Monocytes % 4 % Eosinophils % 0 % Basophils % 0 % Neutrophils # 12.3 H (1.3-7.7) k/uL Lymphocytes # 0.8 L (1.0-4.8) k/uL Monocytes # 0.6 (0-1.0) k/uL Eosinophils # 0.1 (0-0.7) k/uL Basophils # 0.0 (0-0.2) k/uL Sodium 130 L (137-145) mmol/L Potassium 4.0 (3.5-5.1) mmol/L Chloride 90 L (98-107) mmol/L Carbon Dioxide 17 L (22-30) mmol/L Anion Gap 23 mmol/L BUN 9 (9-20) mg/dL Creatinine 0.52 L (0.66-1.25) mg/dL Est GFR (CKD-EPI)AfAm >90 (>60 ml/min/1.73 sqM) Est GFR (CKD-EPI)NonAf >90 (>60 ml/min/1.73 sqM) Glucose 284 H (74-99) mg/dL Calcium 8.4 (8.4-10.2) mg/dL Total Bilirubin 1.0 (0.2-1.3) mg/dL AST 44 (17-59) U/L ALT 30 (4-49) U/L Alkaline Phosphatase 195 H (38-126) U/L Total Protein 6.7 (6.3-8.2) g/dL Albumin 3.8 (3.5-5.0) g/dL Acetone, Qual Positive (Negative) Influenza Type A (PCR) Detected A (Not Detectd) Influenza Type B (PCR) Not Detected (Not Detectd) RSV (PCR) Not Detected (Not Detectd) SARS-CoV-2 (PCR) Not Detected (Not Detectd) Disposition Clinical Impression: DKA (diabetic ketoacidosis), Influenza A Disposition: ADMITTED IP TO THIS HOSP Is patient prescribed a controlled substance at d/c from ED?: No Referrals: Ajay Guallpa MD [Primary Care Provider] - 1-2 days Time of Disposition: 20:59
[2024-10-20] MEDS: SODIUM CHLORIDE 0.9% 500 ML 500 ML IV STA (19:22)
[2024-10-20] MEDS: SODIUM CHLORIDE 0.9% 1,000 ML IV STA (19:22)
[2024-10-20 19:41] LABS: Basophils % (A) 0 %; Eosinophils # (A) 0.1 k/uL (0-0.7); Eosinophils % (A) 0 %; HCT 40.3 % (39.0-53.0); HGB 12.6 gm/dL (13.0-17.5); Lymphocytes # (A) 0.8 k/uL (1.0-4.8); Lymphocytes % (A) 6 %; MCH 30.9 pg (25.0-35.0); MCHC 31.3 g/dL (31.0-37.0); MCV 98.8 fL (80.0-100.0); Mean Platelet Volume 8.2; Monocytes # (A) 0.6 k/uL (0-1.0); Monocytes % (A) 4 %; Neutrophils # (A) 12.3 k/uL (1.3-7.7); Neutrophils % (A) 87 %; Platelet Count 312 k/uL (150-450); RBC 4.08 m/uL (4.30-5.90); RDW 12.3 % (11.5-15.5)
--- NOTE | 2024-10-20 19:45 | XR ---
EXAMINATION TYPE: XR chest 2V DATE OF EXAM: 10/20/2024 7:39 PM COMPARISON: Chest radiographs from 09/24/2024, 09/23/2024 TECHNIQUE: XR chest 2V Frontal and lateral views of the chest. CLINICAL INDICATION:Male, 28 years old with history of Weakness; FINDINGS: Lungs/Pleura: No pleural effusion or pneumothorax. Bibasilar reticular airspace opacities. Pulmonary vascularity: Unremarkable. Heart/mediastinum: Cardiomediastinal silhouette is unremarkable. Musculoskeletal: No acute osseous pathology. IMPRESSION: Bibasilar reticular airspace opacities which may represent atelectasis versus pneumonia. [facility], , 10/20/2024 7:43 PM
[2024-10-20 19:54] LABS: ALT 30 U/L (4-49); African American GFR (CKD) >90 (>60 ml/min/1.73 sqM); Anion Gap 23 mmol/L; Blood Urea Nitrogen 9 mg/dL (9-20); Calcium 8.4 mg/dL (8.4-10.2); Carbon Dioxide 17 mmol/L (22-30); Chloride 90 mmol/L (98-107); Glucose 284 mg/dL (74-99); Non-African American GFR(CKD) >90 (>60 ml/min/1.73 sqM); Sodium 130 mmol/L (137-145)
[2024-10-20 19:57] LABS: AST 44 U/L (17-59); Albumin 3.8 g/dL (3.5-5.0); Alkaline Phosphatase 195 U/L (38-126); Total Protein 6.7 g/dL (6.3-8.2)
[2024-10-20 20:15] LABS: Influenza A Detected (Not Detectd); Influenza B Not Detected (Not Detectd); RSV Not Detected (Not Detectd)
[2024-10-20] MEDS: IPRATROPIUM-ALBUTEROL 3 ML NEB INHALATION STA (20:20)
[2024-10-20] MEDS: INSULIN REGULAR BOLUS (FROM DRIP BAG) IV ONE (21:22)
[2024-10-20] MEDS: INSULIN REGULAR 100 UNIT in SODIUM CHLORIDE 0.9% 100 ML IV SCH (21:24)
[2024-10-20 21:25] LABS: Glucose,Whole Blood 208 mg/dL (70-110)
[2024-10-20] MEDS: SODIUM CHLORIDE 0.9% 1,000 ML IV ONE (21:26)
[2024-10-20] MEDS: SODIUM CHLORIDE 0.9% 1,000 ML IV SCH (21:26)
[2024-10-20] MEDS: D5-0.45% NACL WITH KCL 20MEQ/L 1,000 ML IV SCH (21:35)
[2024-10-20] MEDS: OSELTAMIVIR 75 MG CAP PO SCH (22:10)
[2024-10-20 22:13] LABS: Glucose,Whole Blood 179 mg/dL (70-110)
[2024-10-20 22:53] LABS: Glucose,Whole Blood 154 mg/dL (70-110)
[2024-10-20 23:54] LABS: Glucose,Whole Blood 91 mg/dL (70-110)
[2024-10-21 00:34] LABS: African American GFR (CKD) >90 (>60 ml/min/1.73 sqM); Anion Gap 7 mmol/L; Blood Urea Nitrogen 6 mg/dL (9-20); Carbon Dioxide 27 mmol/L (22-30); Chloride 98 mmol/L (98-107); Glucose 98 mg/dL (74-99); Non-African American GFR(CKD) >90 (>60 ml/min/1.73 sqM); Potassium 3.3 mmol/L (3.5-5.1); Sodium 132 mmol/L (137-145)
[2024-10-21 00:50] LABS: Glucose,Whole Blood 126 mg/dL (70-110)
[2024-10-21] MEDS ORDERED: DEXTROSE 50% SYRINGE 50 ML IVP PRN ×2 (01:22)
[2024-10-21] MEDS: ACETAMINOPHEN TAB 325 MG TAB PO PRN (01:37)
[2024-10-21 01:40] LABS: Glucose,Whole Blood 144 mg/dL (70-110)
[2024-10-21] MEDS: SODIUM CHLORIDE 0.9% 1,000 ML IV SCH (01:43)
[2024-10-21] MEDS: INSULIN GLARGINE (LANTUS) 100 UNIT/ML SYR SQ SCH (01:43)
[2024-10-21 02:27] LABS: Glucose,Whole Blood 112 mg/dL (70-110)
[2024-10-21 03:46] LABS: Glucose,Whole Blood 156 mg/dL (70-110)
[2024-10-21 04:42] LABS: African American GFR (CKD) >90 (>60 ml/min/1.73 sqM); Anion Gap 8 mmol/L; Blood Urea Nitrogen 5 mg/dL (9-20); Carbon Dioxide 25 mmol/L (22-30); Chloride 95 mmol/L (98-107); Glucose 156 mg/dL (74-99); Non-African American GFR(CKD) >90 (>60 ml/min/1.73 sqM); Potassium 3.4 mmol/L (3.5-5.1); Sodium 128 mmol/L (137-145)
[2024-10-21 07:29] LABS: Glucose,Whole Blood 131 mg/dL (70-110)
[2024-10-21] MEDS: INSULIN LISPRO (HumaLOG) 100 UNIT/ML 10 mL VL SQ SCH (07:39)
[2024-10-21] MEDS: PANTOPRAZOLE 40 MG TABLET PO SCH (07:43)
[2024-10-21 09:56] VITALS: TEMP 98.6
[2024-10-21 11:27] LABS: Glucose,Whole Blood 203 mg/dL (70-110)
--- NOTE | 2024-10-21 13:27 | P.HPIM ---
History of Present Illness H&P Date: 10/21/24 Patient is a 29-year-old male with past medical history of type I DM, who presented to the ER with cough, congestion, elevated blood glucose levels. His cold symptoms started on Saturday, he had decreased oral intake, however he is blood sugars continue to go up. Patient is on sliding scale insulin only at home, does not have insulin pump or continuous glucose monitor, he follows with [facility], has issues with his insurance however does have home supplies and insulin. He states that he only gets DKA when he is sick. He states that he believes himself insulin depending on how much carbs he is going to happen with meal. On arrival temperature 99.4, heart rate in 100s, BP 130/77, satting well on room air. Blood work, leukocytosis 0.0, hemoglobin 12.6, normal platelet count, 130, potassium 4.0, bicarb 17, anion gap 23, normal creatinine, glucose 284, positive serum acetone, secondary to positive for influenza A.. Chest x-ray showed bibasilar reticular airspace opacities atelectasis versus pneumonia. EKG showed sinus tachycardia, QTc 393. Admitted for management of DKA, started on insulin drip, anion gap closed, patient was later transitioned to subcu insulin. Patient was started on Tamiflu. Of note, patient was discharged on 09/25/2024 after DKA management. Pertinent positives and negatives as discussed in HPI, a complete review of systems was performed and all other systems are negative. Patient seen and examined at bedside. Vital signs reviewed General: nontoxic, no distress, appears at stated age Derm: warm, dry Head: atraumatic, normocephalic, symmetric Eyes: EOMI, no lid lag, anicteric sclera, pupils equal round reactive to light ENT: Nose and ears atraumatic Neck: No thyromegaly, supple Mouth: no lip lesion, mucus membranes moist Cardiovascular: S1S2 reg, no murmur, no edema Lungs: clear to auscultation bilateral, no rhonchi, no rales, no wheeze, no accessory muscle use Abdominal: soft, nontender to palpation, no guarding, no appreciable organomegaly Ext: no gross muscle atrophy, muscle strength muscle strength 5 out of 5 in all 4 extremities, no contractures Neuro: CN II-XII grossly intact Psych: Alert, oriented, appropriate affect Assessment/Plan: DKA, resolved Type I DM -Continue insulin drip, started on sliding scale, Lantus 12 units nightly ordered -Patient will need to closely follow-up with his endocrinology after discharge -A1c pending Influenza A infection: Continue Tamiflu SOT 10/20 The patient is admitted with an anticipated [greater] than 2 midnight stay as [inpatient/] status for evaluation of DKA, influenza A infection. CODE STATUS: Full code DVT prophylaxis: Lovenox Anticipated discharge date: 10/[address]: Home A total of 40 minutes was spent on the care of this complex patient more than 50% of the time was spent in counseling and care coordination.. Past Medical History Past Medical History: Diabetes Mellitus, GERD/Reflux Additional Past Medical History / Comment(s): IBS History of Any Multi-Drug Resistant Organisms: None Reported Past Surgical History: No Surgical Hx Reported Additional Past Surgical History / Comment(s): pilonidal cyst Past Anesthesia/Blood Transfusion Reactions: No Reported Reaction Past Psychological History: No Psychological Hx Reported Smoking Status: Current every day smoker, Vaper Past Alcohol Use History: None Reported Past Drug Use History: Marijuana Medications and Allergies Home Medications Medication Instructions Recorded Confirmed Type Pantoprazole [Protonix] 40 mg PO DAILY #30 tab 09/25/24 10/20/24 Rx INSULIN ASPART (NovoLOG) [NovoLOG See Protocol SQ DIRECTED 10/20/24 10/20/24 History (formulary)] Allergies Allergy/AdvReac Type Severity Reaction Status Date / Time No Known Allergies Allergy Verified 10/20/24 20:29 Physical Exam Vitals: Vital Signs Temp Pulse Resp BP Pulse Ox 10/21/24 07:49 104 H 19 116/70 97 10/21/24 06:00 98 18 116/72 98 10/21/24 00:49 113 H 18 124/81 10/20/24 23:56 115 H 18 134/89 98 10/20/24 21:26 99.4 F 112 H 18 130/77 10/20/24 20:29 128 H 10/20/24 20:21 104 H 10/20/24 18:41 98.3 F 105 H 18 137/86 94 L Intake and Output 10/20/24 10/21/24 10/21/24 22:59 06:59 14:59 Intake Total 9.407 8.926 Output Total 475 Balance -465.593 8.926 Intake: Intake, IV Titration 9.407 8.926 Amount Insulin Regular 100 unit 9.407 8.926 In Sodium Chloride 0.9% 100 ml @ 0.1 UNITS/KG/HR 6.414 mls/hr IV .[id number] [facility] Rx#:[id number] Output: Urine 475 Other: Weight 63.503 kg Results CBC & Chem 7: 10/20/24 19:23 10/21/24 03:59 Labs: Abnormal Lab Results - Last 24 Hours (Table) 10/20/24 10/20/24 10/20/24 Range/Units 19:23 19:23 19:23 WBC 14.0 H (3.8-10.6) k/uL RBC 4.08 L (4.30-5.90) m/uL Hgb 12.6 L (13.0-17.5) gm/dL Neutrophils # 12.3 H (1.3-7.7) k/uL Lymphocytes # 0.8 L (1.0-4.8) k/uL Sodium 130 L (137-145) mmol/L Potassium (3.5-5.1) mmol/L Chloride 90 L (98-107) mmol/L Carbon Dioxide 17 L (22-30) mmol/L BUN (9-20) mg/dL Creatinine 0.52 L (0.66-1.25) mg/dL Glucose 284 H (74-99) mg/dL POC Glucose (mg/dL) (70-110) mg/dL Phosphorus (2.5-4.5) mg/dL Alkaline Phosphatase 195 H (38-126) U/L Influenza Type A (PCR) Detected A (Not Detectd) 10/20/24 10/20/24 10/20/24 Range/Units 21:24 22:12 22:51 WBC (3.8-10.6) k/uL RBC (4.30-5.90) m/uL Hgb (13.0-17.5) gm/dL Neutrophils # (1.3-7.7) k/uL Lymphocytes # (1.0-4.8) k/uL Sodium (137-145) mmol/L Potassium (3.5-5.1) mmol/L Chloride (98-107) mmol/L Carbon Dioxide (22-30) mmol/L BUN (9-20) mg/dL Creatinine (0.66-1.25) mg/dL Glucose (74-99) mg/dL POC Glucose (mg/dL) 208 H 179 H 154 H (70-110) mg/dL Phosphorus (2.5-4.5) mg/dL Alkaline Phosphatase (38-126) U/L Influenza Type A (PCR) (Not Detectd) 10/20/24 10/20/24 10/21/24 Range/Units 23:57 23:57 00:49 WBC (3.8-10.6) k/uL RBC (4.30-5.90) m/uL Hgb (13.0-17.5) gm/dL Neutrophils # (1.3-7.7) k/uL Lymphocytes # (1.0-4.8) k/uL Sodium 132 L (137-145) mmol/L Potassium 3.3 L (3.5-5.1) mmol/L Chloride (98-107) mmol/L Carbon Dioxide (22-30) mmol/L BUN 6 L (9-20) mg/dL Creatinine 0.41 L (0.66-1.25) mg/dL Glucose (74-99) mg/dL POC Glucose (mg/dL) 126 H (70-110) mg/dL Phosphorus 2.2 L (2.5-4.5) mg/dL Alkaline Phosphatase (38-126) U/L Influenza Type A (PCR) (Not Detectd) 10/21/24 10/21/24 10/21/24 Range/Units 01:39 02:25 03:45 WBC (3.8-10.6) k/uL RBC (4.30-5.90) m/uL Hgb (13.0-17.5) gm/dL Neutrophils # (1.3-7.7) k/uL Lymphocytes # (1.0-4.8) k/uL Sodium (137-145) mmol/L Potassium (3.5-5.1) mmol/L Chloride (98-107) mmol/L Carbon Dioxide (22-30) mmol/L BUN (9-20) mg/dL Creatinine (0.66-1.25) mg/dL Glucose (74-99) mg/dL POC Glucose (mg/dL) 144 H 112 H 156 H (70-110) mg/dL Phosphorus (2.5-4.5) mg/dL Alkaline Phosphatase (38-126) U/L Influenza Type A (PCR) (Not Detectd) 10/21/24 10/21/24 10/21/24 Range/Units 03:59 03:59 07:28 WBC (3.8-10.6) k/uL RBC (4.30-5.90) m/uL Hgb (13.0-17.5) gm/dL Neutrophils # (1.3-7.7) k/uL Lymphocytes # (1.0-4.8) k/uL Sodium 128 L (137-145) mmol/L Potassium 3.4 L (3.5-5.1) mmol/L Chloride 95 L (98-107) mmol/L Carbon Dioxide (22-30) mmol/L BUN 5 L (9-20) mg/dL Creatinine 0.45 L (0.66-1.25) mg/dL Glucose 156 H (74-99) mg/dL POC Glucose (mg/dL) 131 H (70-110) mg/dL Phosphorus 2.3 L (2.5-4.5) mg/dL Alkaline Phosphatase (38-126) U/L Influenza Type A (PCR) (Not Detectd)
[2024-10-21 15:34] VITALS: BP 131/76; PULSE 106; RESP 18
--- NOTE | 2024-10-21 16:16 | P.DS ---
Providers Date of admission: 10/20/24 21:05 Attending physician: Dori Sandoval MD Primary care physician: Ajay Guallpa Hospital Course: Discharge Diagnosis: Left AMA DKA, resolved Type I DM Influenza A infection Hospital Course: Patient is a 29-year-old male with past medical history of type I DM, who presented to the ER with cough, congestion, elevated blood glucose levels. His cold symptoms started on Saturday, he had decreased oral intake, however he is blood sugars continue to go up. Patient is on sliding scale insulin only at home, does not have insulin pump or continuous glucose monitor, he follows with [facility], has issues with his insurance however does have home supplies and insulin. He states that he only gets DKA when he is sick. He states that he believes himself insulin depending on how much carbs he is going to happen with meal. On arrival temperature 99.4, heart rate in 100s, BP 130/77, satting well on room air. Blood work, leukocytosis 0.0, hemoglobin 12.6, normal platelet count, 130, potassium 4.0, bicarb 17, anion gap 23, normal creatinine, glucose 284, positive serum acetone, secondary to positive for influenza A.. Chest x-ray showed bibasilar reticular airspace opacities atelectasis versus pneumonia. EKG showed sinus tachycardia, QTc 393. Admitted for management of DKA, started on insulin drip, anion gap closed, patient was later transitioned to subcu insulin. Patient was started on Tamiflu. Later after initial evaluation patient decided to leave AMA. Please, see physical exam from H&P dated 06/20 Patient was discharged on 10/21 AMA Plan - Discharge Summary New Discharge Prescriptions: No Action Pantoprazole [Protonix] 40 mg PO DAILY #30 tab INSULIN ASPART (NovoLOG) [NovoLOG (formulary)] See Protocol SQ DIRECTED Discharge Medication List Pantoprazole [Protonix] 40 mg PO DAILY #30 tab 09/25/24 [Rx] INSULIN ASPART (NovoLOG) [NovoLOG (formulary)] See Protocol SQ DIRECTED 10/20/24 [History] Follow up Appointment(s)/Referral(s): Ajay Guallpa MD [Primary Care Provider] - 1-2 days Discharge Disposition: LEFT AGAINST MEDICAL ADVICE
[2024-10-22] MEDS ORDERED: ENOXAPARIN 40 MG/0.4 ML SYRINGE SQ SCH (09:00)
== END 2024-10-21 15:54 | disposition left against medical advice (07) | DRG 639 ==
LOC: EC 18:38 → 3SCARD 21:05 → OBSVTOIN 21:05 → 3SCARD 10-21 07:00
PROVIDERS: ADMIT Internal Medicine; ATTEND Internal Medicine
DX: E10.10 Type 1 diabetes mellitus with ketoacidosis without coma (principal); F17.290 Nicotine dependence, other tobacco product, uncomplicated; Z79.4 Long term (current) use of insulin; J10.1 Influenza due to other identified influenza virus with other respiratory manifestations; K21.9 Gastro-esophageal reflux disease without esophagitis; K58.9 Irritable bowel syndrome, unspecified; Z53.29 Procedure and treatment not carried out because of patient's decision for other reasons; Z79.899 Other long term (current) drug therapy
CPT/HCPCS: 36415; 71046; 80051; 80053; 82009; 82565; 82947; 83036; 84100; 84520; 85025; 87636; 93005; 94640; 96361; 96365; 96366; 99291